=== PATIENT | female | born 1945 | race Caucasian/White ===

== ENCOUNTER → 2022-01-28 14:21 | Outpatient (BNVA) | payer MEDICARE, SELFPAY | PROVIDERS: Visit Provider Internal Medicine | DX: M47.26 Other spondylosis with radiculopathy, lumbar region (principal); M17.11 Unilateral primary osteoarthritis, right knee | CPT/HCPCS: 99202 ==

== ENCOUNTER 2022-02-12 10:19 | Outpatient (REF) | payer MEDICARE, SELFPAY ==
--- NOTE | ~2022-02-12 | MR_ITS ---
EXAMINATION: MR LUMBAR SPINE WITHOUT CONTRAST CLINICAL INFORMATION: Radiculopathy. Patient reports back pain radiating to bilateral legs x3 months. COMPARISON: None TECHNIQUE: MRI of the lumbar spine was obtained using routine sequences without contrast. FINDINGS: VERTEBRAL BODIES AND PARASPINAL STRUCTURES: Minimal Grade 1 anterolisthesis of L4 on L5. The vertebral body alignment is otherwise anatomic on the sagittal plane. No vertebral body compression. No acute fractures seen. There is multilevel degenerative disc disease, with associated Modic endplate changes. This includes rpej-dz-hdzdrftd degenerative disc disease at L2-L3, L3-L4, L4-L5. Multilevel disc desiccation. T2 bright foci in the left renal pelvis, probable parapelvic cysts. No suspicious finding seen in the visualized retroperitoneal structures. Paraspinal musculature is within normal limits. CONUS MEDULLARIS AND CAUDA EQUINA: Normal, terminating at the level of L1. SPINAL LEVELS: T10-T11: Mild disc degeneration. No significant disc bulge. T11-T12: Minimal degenerative disc disease. No significant disc bulge. T12-L1: Right paracentral disc protrusion with impression on the ventral thecal sac. No central canal stenosis. No foramen stenosis. L1-L2: Mild degenerative disc disease. Broad-based posterior disc bulge. No central canal stenosis. Mild narrowing of the inferior bilateral neural foramen. L2-L3: Xwsp-jt-unhvzrnz disc degeneration. Broad-based posterior disc bulge, with a left paracentral and foraminal disc protrusion. This abuts the traversing left L3 nerve. Mild bilateral neural foramen narrowing. No central canal stenosis. L3-L4: Txgi-ze-mqmdkpjg disc degeneration. Moderate broad-based disc protrusion. Probable central annular fissure. Mild ligamentum flavum hypertrophy. Mild facet arthropathy. Aaug-lb-uhdqeyny central canal narrowing. Mild right and bexv-jg-ajqyebzt left neural foramen narrowing. L4-L5: Yfog-aa-fkohmcsm disc degeneration. Mild anterolisthesis of L4, with unroofing of the disc/broad-based disc bulge. Nzvlianv-mc-kfyits bilateral facet arthropathy. Ligamentum flavum hypertrophy. No significant central canal stenosis. Mild right foramen, and szbx-ld-cmjmcwae left neural foramen narrowing. L5-S1: Mild broad-based posterior disc bulge. Severe bilateral facet arthropathy. No central canal stenosis. No significant neural foramen stenosis. MR/MR lumbar spine wo con IMPRESSION: At L3-L4, moderate broad-based disc protrusion. Probable central annular fissure. Hdnn-zv-byifdhqm central canal narrowing. Mild right hip and dzsp-un-ywsxpvbj left neural foramen narrowing. Multilevel spondyloarthropathy of the lumbosacral spine with varying degrees of foraminal stenosis, as detailed above by level.
== END 2022-02-12 10:20 | disposition home or self-care (01) ==
LOC: HO.MRI 10:19
PROVIDERS: Visit Provider Internal Medicine
DX: M54.16 Radiculopathy, lumbar region (principal); M47.816 Spondylosis without myelopathy or radiculopathy, lumbar region
CPT/HCPCS: 72148

== ENCOUNTER 2022-03-13 07:21 | Outpatient (REF) | payer MEDICARE, SELFPAY | END 2022-03-13 07:22 | disposition home or self-care (01) | LOC: HO.RADIR 07:21 | PROVIDERS: Visit Provider Internal Medicine | DX: M17.11 Unilateral primary osteoarthritis, right knee (principal) | CPT/HCPCS: 64447 ==

== ENCOUNTER → 2022-03-15 10:29 | Outpatient (BNVA) | payer MEDICARE, SELFPAY | PROVIDERS: Visit Provider Internal Medicine | DX: M54.16 Radiculopathy, lumbar region (principal) | CPT/HCPCS: Q3014 ==

== ENCOUNTER 2022-03-20 14:41 | Outpatient (REF) | payer MEDICARE, SELFPAY ==
--- NOTE | ~2022-03-20 | US_ITS ---
EXAMINATION: US KNEE, RIGHT CLINICAL INFORMATION: Osteoarthritis. COMPARISON: None. TECHNIQUE: Targeted ultrasound evaluation of the right knee. FINDINGS: There are 2 right popliteal fossa complex fluid collections present with 1 communicating with the right knee joint: One measures 4.2 x 1.2 x 3.0 cm in size and the other measures 4.4 x 1.4 x 4.7 cm in size. US/US extremity nonvascular IMPRESSION: Right popliteal fossa cysts.
== END 2022-03-20 14:42 | disposition home or self-care (01) ==
LOC: HO.US 14:41
PROVIDERS: Visit Provider Nurse Practitioner Family
DX: M17.11 Unilateral primary osteoarthritis, right knee (principal)
CPT/HCPCS: 76882

== ENCOUNTER 2022-04-03 06:37 | Outpatient (REF) | payer MEDICARE, SELFPAY ==
--- NOTE | ~2022-04-03 | FL_ITS ---
EXAMINATION: XR FLUOROSCOPY WITH IMAGES CLINICAL INFORMATION: M54.16 - Radiculopathy, lumbar region COMPARISON: MR lumbar spine 02/12/2022 TECHNIQUE: Fluoroscopy performed by Dr. aJvy Ambriz. Fluoroscopy time: 0.4 minutes. Cumulative Dose: 11.4 mGy. DAP: 0.932 Gy-cm2. Images: 4. FINDINGS: There is a spinal needle at the interlaminar lumbosacral junction. Epidural contrast is demonstrated. No visible vascular communication. There are degenerative disc changes again noted L4-L5. FL/FL guidance in treatment room IMPRESSION: Fluoroscopy for pain management procedure.
== END 2022-04-03 06:38 | disposition home or self-care (01) ==
LOC: HO.RADIR 06:37
PROVIDERS: Visit Provider Internal Medicine
DX: M54.16 Radiculopathy, lumbar region (principal)
CPT/HCPCS: 62323; J1040; J2795

== ENCOUNTER 2022-05-01 09:22 | Day surgery (SDC) | payer MEDICARE, SELFPAY ==
[2022-05-01 08:21] VITALS: BMI 31.5
[2022-05-01 09:31] VITALS: BP 159/77; PULSE 98; RESP 20; TEMP 36.4; O2SAT 97
[2022-05-01 11:46] VITALS: BP 151/85; PULSE 95; RESP 20; TEMP 36.7; O2SAT 99
--- NOTE | 2022-05-07 15:41 | MHC.SHP ---
Pre-Procedural Eval Section A Date of Service: 05/07/22 The patient is an INPATIENT: No Changes since office visit: Yes Patient answered all questions The History & Physical has been completed within 30 days and I have reviewed it.: No Section B Chief Complaint: osteoarthritis, chronic knee pain Relevant Family History (Specify if Yes): No Relevant Social History: None Present Medications: see Short Stay Collaborative assessment Medical History: No relevant PMH History of Previous Operations: No relevant previous surgery Allergies: Allergies Allergy/AdvReac Type Severity Reaction Status Date / Time No Known Allergies Allergy Verified 04/03/22 13:40 Review of Systems Sugical H&P ROS: Negative: Constitution, Cardiovascular and Respiratory Exam Surgical H&P Exam: Normal: HEENT, Normal: Heart and Normal: Lungs Plan Diagnosis/Plan: Unchanged I have reviewed the history and physical and performed a pertinent physical examination on my patient. No changes have occurred unless specified.
--- NOTE | 2022-05-07 15:42 | P.BOP_ITS ---
Brief Operative Note Date of Service: 05/01/22 Pre-op diagnosis: Right knee osteoarthritis, chronic right knee pain Post-op diagnosis: same Procedure: Temporary right saphenous nerve stimulator placement Implants: Sprint temporary PNS system Surgeon: Javy Ambriz MD Anesthesia: local Was an Director Of Anesthesia Services used for this Procedure?: No Estimated blood loss (mL): 2 Pathology: none sent Condition: stable Disposition: same day
--- NOTE | 2022-05-07 15:43 | P.OP_ITS ---
Operative Note Operative Note Date of Service: 05/01/22 Narrative: Peripheral Nerve Stimulation Temporary Lead Placement, Ultrasound-Guided, Saphenous Nerve, Right ? After the risks, benefits and alternatives were discussed with the patient and informed consentwas obtained, patient was placed in the supine position and padded to foster comfort. Appropriate skin and bony landmarks were identified, and pertinent vascular structures were located. The skin overlying the needle entry site was prepped and draped in sterile fashion. Ultrasound was used to identify the femoral artery, the femoral vein and the saphenous nerve. After identifying and marking the intended target along the course of the saphenous nerve, the skin around the planned entry point and the subcutaneous tissues were injected with local anesthetic. An introducer needle and stimulating probe were assembled, inserted and advanced along the intended course of the saphenous; nerve, taking care to maintain the proper depth of insertion as the introducer was advanced under ultrasound guidance. The introducer needle was delivered to a location in proximity to the nerve taking care not to puncture the femoral artery or the vein. Multiple stimulation parameters were used to deliver stimulation to the saphenous nerve in concert with stimulating at multiple positions around the nerve. Nerve target acquisition was confirmed noting generation of sensory and mild motor effects (paresthesia, muscle tension, etc) in the medial knee, leg and ankle; corresponding to the distribution of the saphenous nerve. Various electrical parameter combinations were tested, and the lead location was adjusted (physic ally relocated under ultrasound guidance) until the patient indicated medial knee paresthesia and tension overlapping the distribution of the patient?s typical region of pain. The stimulating probe was removed from the introducer and a percutaneous lead was guided through the needle and delivered to a location in similar proximity to the nerve. Final location was verified with electrical stimulation and documented. The introducer needle was removed, and the exposed end of the percutaneous lead was attached to an external stimulator unit. Various electrical parameter combinations were again tested until the patient indicated paresthesia and muscle tension overlapping the distribution of the patient?s typical region of pain. After confirming that lead impedance was in the normal range, the external unit was detached, the needle was removed, and the lead was anchored at the skin. The lead was threaded into the connector block and electrical continuity and desired patient response was confirmed. The connector block was attached to the external stimulator unit. The site was covered with a sterile occlusive dressing. A final ultrasound image was taken to document final placement. The patient was observed for stability of vital signs and comfort.
== END 2022-05-01 12:25 | disposition home or self-care (01) ==
PROVIDERS: PCP Internal Medicine; Visit Provider Internal Medicine
PROC: (CPT 64555; principal; 2022-05-01 10:20)
DX: M17.11 Unilateral primary osteoarthritis, right knee (principal); G89.29 Other chronic pain; M25.561 Pain in right knee; M54.50 Low back pain, unspecified; M81.0 Age-related osteoporosis without current pathological fracture; I10 Essential (primary) hypertension; J45.909 Unspecified asthma, uncomplicated; F43.0 Acute stress reaction; Z79.899 Other long term (current) drug therapy
CPT/HCPCS: 64555; C1778

== ENCOUNTER → 2022-05-10 09:33 | Outpatient (BNVA) | payer MEDICARE, SELFPAY | PROVIDERS: PCP Internal Medicine; Visit Provider Internal Medicine | DX: M17.11 Unilateral primary osteoarthritis, right knee (principal); M25.561 Pain in right knee | CPT/HCPCS: 99212 ==

== ENCOUNTER → 2022-06-28 08:05 | Outpatient (BNVA) | payer MEDICARE, SELFPAY | PROVIDERS: PCP Internal Medicine; Visit Provider Internal Medicine | DX: M25.561 Pain in right knee (principal); M54.16 Radiculopathy, lumbar region | CPT/HCPCS: 99212 ==

== ENCOUNTER 2023-11-26 08:05 | Outpatient (REF) | payer MEDICARE, SELFPAY ==
--- NOTE | ~2023-11-26 | XR_ITS ---
EXAMINATION: XR KNEE AP STANDING CLINICAL INFORMATION: Unilateral primary osteoarthritis, right knee COMPARISON: None available. TECHNIQUE: AP bilateral standing view of the knees was obtained. FINDINGS: No fracture. Alignment is anatomic. There is mild narrowing of the medial and lateral joint compartments of both knees. Small marginal osteophytes are seen along the lateral joint compartment of the right knee. There is mild subchondral sclerosis within the articular surface of the medial femoral condyle of the right knee. No abnormal soft tissue calcification. XR/XR knee standing BI IMPRESSION: 1. Mild bilateral osteoarthritis. 2. Mild subchondral sclerosis within the medial joint compartment of the right knee.
== END 2023-11-26 08:06 | disposition home or self-care (01) ==
LOC: HO.XRAY 08:05
PROVIDERS: PCP Internal Medicine; Visit Provider Internal Medicine
DX: M17.11 Unilateral primary osteoarthritis, right knee (principal)
CPT/HCPCS: 73565; 99212

== ENCOUNTER 2023-11-26 08:05 | Outpatient (AMB) | payer MEDICARE, SELFPAY ==
--- NOTE | 2023-11-26 08:08 | A.OFFVIS_ITS ---
Vital Signs 11/26/23 08:09 Height 5 ft 4 in Weight 174 lb 4 oz BMI 29.9 BP 190/78 H Blood Pressure Location Lt brachial Position Sitting Respiration 16 Pulse 82 Pulse Source Pulse Oximeter Pulse Oximetry (%) 97 Oxygen Delivery Method Room Air Intake Visit Reasons: back/legs pain Allergies No Known Allergies Allergy (Verified 06/28/22 08:20) HPI HPI back/legs pain: Details: 77-year-old female who presents today for evaluation of back/leg pain She reports having pain, tightness, and discomfort in her back and legs. She had about 10 months of relief from the nerve stimulation procedure. Her pain has now returned and she feels this pain is similar to the kind of back pain she had in the past. Pain originates in the back and radiates down her right leg. Past Procedures: 05/01/22: Sprint PNS Trial ? excellent relief for 8-10 months. 04/03/22: Right Parasagittal Interlaminar L5-S1 NYASIA ? 80% relief. 03/13/22: Right Diagnostic Saphenous NB ? 90% relief for one day. [facility] Medical History (Updated 06/28/22 @ 09:16 by Javy mAbriz MD) Tick bite Situational stress Polyarthritis Palpitations Osteoporosis Obesity Low back pain Knee pain Hypothyroidism Hypertensive disorder Hypercholesterolemia Healthcare maintenance Diastolic dysfunction GERD (gastroesophageal reflux disease) Full thickness rotator cuff tear Dyspnea Cervical spondylosis Asthma Anxiety Actinic keratosis Abdominal pain Social History Patient Tobacco Use Status: Never used Tobacco Review of Systems Const All systems reviewed & are unremarkable except as noted in HPI and below Physical Exam Vital Signs: Last Vital Signs Pulse 82 11/26/23 08:09 Resp 16 11/26/23 08:09 BP 190/78 H 11/26/23 08:09 Pulse Ox 97 11/26/23 08:09 Oxygen Delivery Method Room Air 11/26/23 08:09 BMI result Body Mass Index 29.9 General: Appears afebrile. Alert and oriented. Mood and affect appropriate. Follows and participates in conversation appropriately. Respiratory effort is unlabored. Able to transition from sit to stand unassisted. Results Reviewed Results Reviewed: 04/03/22: XR FLUOROSCOPY WITH IMAGES FINDINGS: There is a spinal needle at the interlaminar lumbosacral junction. Epidural contrast is demonstrated. No visible vascular communication. There are degenerative disc changes again noted L4-L5. IMPRESSION: Fluoroscopy for pain management procedure. 02/20/22: US KNEE, RIGHT FINDINGS: There are 2 right popliteal fossa complex fluid collections present with 1 communicating with the right knee joint: One measures 4.2 x 1.2 x 3.0 cm in size and the other measures 4.4 x 1.4 x 4.7 cm in size. IMPRESSION: Right popliteal fossa cysts. 02/12/22: MR LUMBAR SPINE WITHOUT CONTRAST FINDINGS: VERTEBRAL BODIES AND PARASPINAL STRUCTURES: Minimal Grade 1 anterolisthesis of L4 on L5. The vertebral body alignment is otherwise anatomic on the sagittal plane. No vertebral body compression. No acute fractures seen. There is multilevel degenerative disc disease, with associated Modic endplate changes. This includes butc-jv-jlalgoat degenerative disc disease at L2-L3, L3-L4, L4-L5. Multilevel disc desiccation. T2 bright foci in the left renal pelvis, probable parapelvic cysts. No suspicious finding seen in the visualized retroperitoneal structures. Paraspinal musculature is within normal limits. CONUS MEDULLARIS AND CAUDA EQUINA: Normal, terminating at the level of L1. SPINAL LEVELS: T10-T11: Mild disc degeneration. No significant disc bulge. T11-T12: Minimal degenerative disc disease. No significant disc bulge. T12-L1: Right paracentral disc protrusion with impression on the ventral thecal sac. No central canal stenosis. No foramen stenosis. L1-L2: Mild degenerative disc disease. Broad-based posterior disc bulge. No central canal stenosis. Mild narrowing of the inferior bilateral neural foramen. L2-L3: Glet-gc-ycnnjynb disc degeneration. Broad-based posterior disc bulge, with a left paracentral and foraminal disc protrusion. This abuts the traversing left L3 nerve. Mild bilateral neural foramen narrowing. No central canal stenosis. L3-L4: Deid-zi-jdlkrgrx disc degeneration. Moderate broad-based disc protrusion. Probable central annular fissure. Mild ligamentum flavum hypertrophy. Mild facet arthropathy. Xpaa-du-vbnrojso central canal narrowing. Mild right and lgmu-mu-rtjdiasq left neural foramen narrowing. L4-L5: Yipi-mg-berjhvhc disc degeneration. Mild anterolisthesis of L4, with unroofing of the disc/broad-based disc bulge. Njggytng-hn-sioguv bilateral facet arthropathy. Ligamentum flavum hypertrophy. No significant central canal stenosis. Mild right foramen, and ebir-uq-tlbjppkd left neural foramen narrowing. L5-S1: Mild broad-based posterior disc bulge. Severe bilateral facet arthropathy. No central canal stenosis. No significant neural foramen stenosis. IMPRESSION: At L3-L4, moderate broad-based disc protrusion. Probable central annular fissure. Sosh-do-rbtpkcyb central canal narrowing. Mild right hip and fysd-hd-svwniqsi left neural foramen narrowing. Multilevel spondyloarthropathy of the lumbosacral spine with varying degrees of foraminal stenosis, as detailed above by level. Assessment & Plan Assessment & Plan (1) Right knee pain: Comment: Status post peripheral nerve stimulation with 80% relief Code(s): M25.561 - Pain in right knee Category: Medical (2) Osteoarthritis of right knee: Code(s): M17.11 - Unilateral primary osteoarthritis, right knee Category: Medical Plan Repeat right parasagittal interlaminar NYASIA at L4-5 for lumbar radicular symptoms going down her leg. X-rays of bilateral standing knees to assess osteoarthritis. Will consider hyaluronic acid injection after reviewing the X-ray. Scribed for Dr. Ambriz by Terence Villagran, medical lead, on 11/26/2023. I, Dr. Ambriz, have personally reviewed and agree with the information entered by the scribe. Orders: Orders XR hips DEB min 3V 11/26/23 M17.11 - Unilateral primary osteoarthritis, right knee, M25.561 - Pain in right knee XR knee standing BI 11/26/23 M17.11 - Unilateral primary osteoarthritis, right knee, M25.561 - Pain in right knee Coding Level of Care Code Est Pt Level 4 (52135) Diagnoses Right knee pain M25.561 Osteoarthritis of right knee M17.11
[2023-11-26 08:09] VITALS: BP 190/78; PULSE 82; RESP 16; O2SAT 97; BMI 29.9
== END 2023-11-26 08:42 | disposition home or self-care (01) ==
PROVIDERS: PCP Internal Medicine; Visit Provider Internal Medicine
DX: M25.561 Pain in right knee (principal); M17.11 Unilateral primary osteoarthritis, right knee
CPT/HCPCS: 99214

== ENCOUNTER 2023-12-18 06:05 | Outpatient (REF) | payer MEDICARE, SELFPAY ==
--- NOTE | ~2023-12-18 | FL_ITS ---
EXAMINATION: XR FLUOROSCOPY WITH IMAGES CLINICAL INFORMATION: Lumbar radiculopathy. COMPARISON: None available. TECHNIQUE: Fluoroscopy Supervised By: Dr. Ambriz. Fluoroscopy Time: 0.0. Cumulative Dose: 1.992 mGy. DAP: 0.55593 Gycm2. Images: 3. FINDINGS: Intraoperative fluoroscopy and spot films were performed during a procedure in the OR. A spinal needle is present in the epidural space on the right at what is likely L5-S1 although exact level difficult to ascertain because of the coning of the radiographs. Contrast is seen in the epidural space Please see Dr. Ambriz' report for complete details. FL/FL guidance in treatment room IMPRESSION: Intraoperative fluoroscopy and spot films were obtained. Please see Dr. Ambriz' report for complete details.
== END 2023-12-18 06:06 | disposition home or self-care (01) ==
LOC: CF 06:05
PROVIDERS: Visit Provider Internal Medicine
DX: M54.16 Radiculopathy, lumbar region (principal)
CPT/HCPCS: 62323; J2795; J3301; Q9967

== ENCOUNTER 2023-12-18 07:43 | Outpatient (AMB) | payer MEDICARE, SELFPAY ==
--- NOTE | 2023-12-18 07:46 | A.OFFVIS_ITS ---
Vital Signs 12/18/23 07:56 12/18/23 08:44 Height 54 ft Weight 174 lb BMI 0.3 BP 122/80 126/80 Blood Pressure Location Lt brachial Lt brachial Position Sitting Sitting Respiration 16 18 Pulse 81 88 Pulse Source Pulse Oximeter Pulse Oximeter Pulse Oximetry (%) 100 99 Oxygen Delivery Method Room Air Room Air Comment Pre-Op Post-Op Intake Visit Reasons: Right L5-S1 parasagittal interlaminar NYASIA Allergies No Known Allergies Allergy (Verified 06/28/22 08:20) HPI HPI Right L5-S1 parasagittal interlaminar NYASIA: Details: Patient presents for scheduled procedure. Denies any recent cough, cold, infection, fever or other significant changes in medical history since last office visit. [facility] Medical History (Updated 12/18/23 @ 08:19 by Javy Ambriz MD) Tick bite Situational stress Polyarthritis Palpitations Osteoporosis Obesity Low back pain Knee pain Hypothyroidism Hypertensive disorder Hypercholesterolemia Healthcare maintenance Diastolic dysfunction GERD (gastroesophageal reflux disease) Full thickness rotator cuff tear Dyspnea Cervical spondylosis Asthma Anxiety Actinic keratosis Abdominal pain Social History Patient Tobacco Use Status: Never used Tobacco Physical Exam Vital Signs: Last Vital Signs Pulse 81 12/18/23 07:56 Resp 16 12/18/23 07:56 BP 122/80 12/18/23 07:56 Pulse Ox 100 12/18/23 07:56 Oxygen Delivery Method Room Air 12/18/23 07:56 BMI result Body Mass Index 0.3 Office Procedures Joint Injection/Drain Joint Injection/Drain Details: Interlaminar epidural steroid injection, L5/S1, Right parasaggital After obtaining written consent, pre-procedure blood pressure and heart rate were stable and recorded in the nursing record. The patient was placed in the prone position. The lumbar area was widely prepped with chloraprep and draped in sterile fashion. Fluoroscopic guidance was used to identify the desired interlaminar space and for needle placement. Subcutaneous 0.5% lidocaine was used to anesthetize the skin overlying the target. A 20-gauge Goddard needle was advanced to the epidural space using loss of resistance to contrast technique under fluoroscopic AP and contralateral oblique views. There was no evidence of heme or CSF and no paresthesias were elicited with needle placement. Confirmation of epidural needle placement was performed with 1cc of omnipaque 180. Next 3 ml 0.5% lidocaine mixed with 40 mg triamcinolone was administered epidurally with no pain elicited on injection. The needle tract tubing was then cleared with 1 ml of 0.5% lidocaine. The needle was removed, skin cleansed and a sterile bandage was applied. The patient tolerated the procedure well and no complications were encountered. Following the procedure the patient's vital signs were stable. The patient was discharged home in good condition with post-procedural instructions. Time Out: Immediately prior to the procedure, the following was verbally confirmed that there is a signed consent form and that the correct patient, planned procedure, site and side are consistent with documentation and that necessary equipment and/or blood products are available prior to the start of the case. Complications: none EBL: <5 cc Coding 93775 - Caudal/Lumbar Epidural/Interlaminar with fluoroscopy Procedure code (CPT) selection complete Assessment & Plan Assessment & Plan (1) Lumbar radiculopathy: Code(s): M54.16 - Radiculopathy, lumbar region Category: Medical Plan Patient is status post right parasagittal L5-S1 NYASIA. Patient tolerated procedure well and was discharged home in stable condition with discharge instructions. All questions were answered. We will follow-up via telephone or in clinic to assess response to therapy. A follow-up appointment was made during today's visit. Orders: Orders FL guidance in treatment room Today M54.16 - Radiculopathy, lumbar region Coding Level of Care Code Procedure Only Diagnoses Lumbar radiculopathy M54.16 CPT Codes Coding - Joint 11: 06133 - Caudal/Lumbar Epidural/Interlaminar with fluoroscopy ([id number])
[2023-12-18 07:56] VITALS: BP 122/80; PULSE 81; RESP 16; O2SAT 100
[2023-12-18 08:44] VITALS: BP 126/80; PULSE 88; RESP 18; O2SAT 99
== END 2023-12-18 08:32 | disposition home or self-care (01) ==
LOC: HO.PMCPRC 07:43
PROVIDERS: PCP Internal Medicine; Visit Provider Internal Medicine
DX: M54.16 Radiculopathy, lumbar region (principal)
CPT/HCPCS: 62323

== ENCOUNTER 2024-01-16 07:50 | Outpatient (AMB) | payer MEDICARE, SELFPAY ==
--- NOTE | 2024-01-16 07:53 | MHC.OFFVIS ---
Vital Signs 01/16/24 07:55 Height 5 ft 4 in Weight 174 lb BMI 29.9 BP 182/81 H Blood Pressure Location Lt brachial Position Sitting Respiration 14 Pulse 83 Pulse Source Pulse Oximeter Pulse Oximetry (%) 100 Oxygen Delivery Method Room Air Intake Visit Reasons: s/p right L5-S1 interlaminar NYASIA Allergies No Known Allergies Allergy (Verified 01/16/24 07:56) Medication List - Last Reconciled 01/16/24 by Kristie Marvin LPN atorvastatin 5 mg PO BEDTIME denosumab (Prolia) 60 mg subcut [id number] levothyroxine 50 mcg PO DAILY lisinopril 10 mg PO BEDTIME multivitamin 1 tab PO DAILY omeprazole 20 mg PO DAILY HPI HPI s/p right L5-S1 interlaminar NYASIA: Details: 78-year-old female who presents today to the office for a status post right L5-S1 interlaminar NYASIA. The patient reports 30% relief following the procedure. She reports having pain in the right leg, back side of the leg, lower back, and feeling sciatic pain sensations. She also reports knee pain (R>L) and had an x-ray of the knee on her last visit. She reoprts mild swelling around the knees. She is able to move around more in the house without pain after the injection. She states that climbing stairs is worse. She is thinking about knee replacement surgery. She had a cortisone injection in the past with moderate relief. Past procedures 12/18/23: Interlaminar epidural steroid injection, L5/S1, Right parasaggital: 30% relief. 05/01/22: Sprint saphenous PNS Trial ? excellent relief for 8-10 months. 04/03/22: Right Parasagittal Interlaminar L5-S1 NYASIA ? 80% relief. 03/13/22: Right Diagnostic Saphenous NB ? 90% relief for one day. [facility] Medical History (Updated 01/16/24 @ 09:03 by Javy Ambriz MD) Tick bite Situational stress Polyarthritis Palpitations Osteoporosis Obesity Low back pain Knee pain Hypothyroidism Hypertensive disorder Hypercholesterolemia Healthcare maintenance Diastolic dysfunction GERD (gastroesophageal reflux disease) Full thickness rotator cuff tear Dyspnea Cervical spondylosis Asthma Anxiety Actinic keratosis Abdominal pain Social History Patient Tobacco Use Status: Never used Tobacco Review of Systems Const All systems reviewed & are unremarkable except as noted in HPI and below Physical Exam Vital Signs: Last Vital Signs Pulse 83 01/16/24 07:55 Resp 14 01/16/24 07:55 BP 182/81 H 01/16/24 07:55 Pulse Ox 100 01/16/24 07:55 Oxygen Delivery Method Room Air 01/16/24 07:55 BMI result Body Mass Index 29.9 General: Appears afebrile. Alert and oriented. Mood and affect appropriate. Follows and participates in conversation appropriately. Respiratory effort is unlabored. Able to transition from sit to stand unassisted. Ambulates with bilaterally normal heel strike and toe off. Results Reviewed Results Reviewed: No imaging is available for review. Assessment & Plan Assessment & Plan (1) Osteoarthritis of knees, bilateral: Code(s): M17.0 - Bilateral primary osteoarthritis of knee Category: Medical (2) Lumbar radiculopathy: Code(s): M54.16 - Radiculopathy, lumbar region Category: Medical Plan Discussed nerve root block for back pain and temporary stimulator vs. gel injections vs. cortisone injection vs. PRP injections for knee pain as possible treatment options. Will schedule her for a right L5 TFESI for her right leg radicular pain. Will also schedule her for a bilateral euflexxa knee injection x 3 for knee osteoarthritis. Discussed the risks and benefits of the procedure with the patient in detail. All questions were answered. The patient is on board with the plan. Justification for interventional therapy: ? Patient with average pain > 6/10 ? Patient has exhausted conservative therapy ? Patient unable to tolerate physical therapy due to pain. . Patient has a good understanding of their pain condition and has appropriate mental and social support Scribed for Dr. Ambriz by Leo Robles, hospital medical assistant, on 01/16/2024. I, Dr. Ambriz, have personally reviewed and agree with the information entered by the scribe. Coding Level of Care Code Est Pt Level 4 (90709) Diagnoses Osteoarthritis of knees, bilateral M17.0 Lumbar radiculopathy M54.16
[2024-01-16 07:55] VITALS: BP 182/81; PULSE 83; RESP 14; O2SAT 100; BMI 29.9
== END 2024-01-16 08:27 | disposition home or self-care (01) ==
PROVIDERS: PCP Internal Medicine; Visit Provider Internal Medicine
DX: M17.0 Bilateral primary osteoarthritis of knee (principal); M54.16 Radiculopathy, lumbar region
CPT/HCPCS: 99214

== ENCOUNTER → 2024-01-16 07:50 | Outpatient (BNVA) | payer MEDICARE, SELFPAY | PROVIDERS: PCP Internal Medicine; Visit Provider Internal Medicine | DX: M17.0 Bilateral primary osteoarthritis of knee (principal); M54.16 Radiculopathy, lumbar region | CPT/HCPCS: 99212 ==

== ENCOUNTER 2024-02-12 08:43 | Outpatient (AMB) | payer MEDICARE, SELFPAY ==
--- NOTE | 2024-02-12 08:49 | A.OFFVIS_ITS ---
Vital Signs 02/12/24 08:50 Height 5 ft 4 in Weight 179 lb BMI 30.7 BP 177/79 H Blood Pressure Location Rt brachial Position Sitting Respiration 19 Pulse 90 Pulse Source Pulse Oximeter Pulse Oximetry (%) 99 Oxygen Delivery Method Room Air Intake Visit Reasons: Sherwin Euflexxa injections Allergies No Known Allergies Allergy (Verified 02/12/24 08:52) Medication List - Last Reconciled 02/12/24 by Kori Corrigan atorvastatin 5 mg PO BEDTIME denosumab (Prolia) 60 mg subcut [id number] levothyroxine 50 mcg PO DAILY lisinopril 10 mg PO BEDTIME multivitamin 1 tab PO DAILY omeprazole 20 mg PO DAILY HPI HPI Sherwin Euflexxa injections: Details: Patient presents for scheduled procedure. Denies any recent cough, cold, infection, fever or other significant changes in medical history since last office visit. [facility] Medical History (Updated 01/16/24 @ 09:03 by Javy Ambriz MD) Tick bite Situational stress Polyarthritis Palpitations Osteoporosis Obesity Low back pain Knee pain Hypothyroidism Hypertensive disorder Hypercholesterolemia Healthcare maintenance Diastolic dysfunction GERD (gastroesophageal reflux disease) Full thickness rotator cuff tear Dyspnea Cervical spondylosis Asthma Anxiety Actinic keratosis Abdominal pain Social History Patient Tobacco Use Status: Never used Tobacco Physical Exam Vital Signs: Last Vital Signs Pulse 90 02/12/24 08:50 Resp 19 02/12/24 08:50 BP 177/79 H 02/12/24 08:50 Pulse Ox 99 02/12/24 08:50 Oxygen Delivery Method Room Air 02/12/24 08:50 BMI result Body Mass Index 30.7 Office Procedures Joint Injection/Drain Joint Injection/Drain Details: The knee joint was visualized using ultrasound. A 25 gauge needle was advanced intra-articularly under ultrasound and placement was confirmed with intra- articular visualization of the needle tip. The prepackaged Euflexxa syringe containing 2 mL sodium hyaluronate was retrieved and administered to the joint. The same process was repeated on the other side. The patient tolerated the procedures well. Euflexxa Lot # [id number] Exp Date 12/14/2024 Coding Additional procedure code (CPT) needed Assessment & Plan Assessment & Plan (1) Osteoarthritis of knees, bilateral: Code(s): M17.0 - Bilateral primary osteoarthritis of knee Category: Medical Plan Patient is status post bilateral intra-articular Euflexxa (1% sodium hyaluronate) injections. Patient tolerated procedure well and was discharged home in stable condition with discharge instructions. All questions were answered. We will follow-up via telephone or in clinic to assess response to therapy. A follow-up appointment was made during today's visit. Coding Level of Care Code Procedure Only Diagnoses Osteoarthritis of knees, bilateral M17.0
[2024-02-12 08:50] VITALS: BP 177/79; PULSE 90; RESP 19; O2SAT 99; BMI 30.7
== END 2024-02-12 09:27 | disposition home or self-care (01) ==
PROVIDERS: PCP Internal Medicine; Visit Provider Internal Medicine
DX: M17.0 Bilateral primary osteoarthritis of knee (principal)
CPT/HCPCS: 20611

== ENCOUNTER → 2024-02-12 08:43 | Outpatient (BNVA) | payer MEDICARE, SELFPAY | PROVIDERS: PCP Internal Medicine; Visit Provider Internal Medicine | DX: M17.0 Bilateral primary osteoarthritis of knee (principal) | CPT/HCPCS: 20611 ==

== ENCOUNTER 2024-02-20 07:50 | Outpatient (AMB) | payer MEDICARE, SELFPAY ==
--- NOTE | 2024-02-20 07:55 | MHC.OFFVIS ---
Vital Signs 02/20/24 07:57 Height 5 ft 4 in Weight 176 lb BMI 30.2 BP 186/86 H Blood Pressure Location Lt brachial Position Sitting Respiration 14 Pulse 88 Pulse Source Pulse Oximeter Pulse Oximetry (%) 98 Oxygen Delivery Method Room Air Intake Visit Reasons: Sherwin Euflexxa inj Allergies No Known Allergies Allergy (Verified 02/20/24 07:58) Medication List - Last Reconciled 02/20/24 by Kristie Marvin LPN atorvastatin 5 mg PO BEDTIME denosumab (Prolia) 60 mg subcut [id number] levothyroxine 50 mcg PO DAILY lisinopril 10 mg PO BEDTIME multivitamin 1 tab PO DAILY omeprazole 20 mg PO DAILY HPI HPI Sherwin Euflexxa inj: Details: 78-year-old female who presents today to the office for a bilateral Euflexxa injections. Denies any recent cough, cold, infection, fever or other significant changes in medical history since last office visit.? Past procedures 02/12/2024: bilateral intra-articular Euflexxa (1% sodium hyaluronate) injections: % relief. 12/18/23: Interlaminar epidural steroid injection, L5/S1, Right parasaggital: 30% relief. 05/01/22: Sprint saphenous PNS Trial ? excellent relief for 8-10 months. 04/03/22: Right Parasagittal Interlaminar L5-S1 NYASIA ? 80% relief. 03/13/22: Right Diagnostic Saphenous NB ? 90% relief for one day. [facility] Medical History (Updated 01/16/24 @ 09:03 by Javy Ambriz MD) Tick bite Situational stress Polyarthritis Palpitations Osteoporosis Obesity Low back pain Knee pain Hypothyroidism Hypertensive disorder Hypercholesterolemia Healthcare maintenance Diastolic dysfunction GERD (gastroesophageal reflux disease) Full thickness rotator cuff tear Dyspnea Cervical spondylosis Asthma Anxiety Actinic keratosis Abdominal pain Social History Patient Tobacco Use Status: Never used Tobacco Review of Systems Const All systems reviewed & are unremarkable except as noted in HPI and below Physical Exam Vital Signs: Last Vital Signs Pulse 88 02/20/24 07:57 Resp 14 02/20/24 07:57 BP 186/86 H 02/20/24 07:57 Pulse Ox 98 02/20/24 07:57 Oxygen Delivery Method Room Air 02/20/24 07:57 BMI result Body Mass Index 30.2 General: Appears afebrile. Alert and oriented. Mood and affect appropriate. Follows and participates in conversation appropriately. Respiratory effort is unlabored. Able to transition from sit to stand unassisted. Ambulates with bilaterally normal heel strike and toe off. Office Procedures Joint Injection/Aspiration Joint Injection/Aspiration Details: The knee was visualized using ultrasound. A 25 gauge needle was advanced in to the suprapatellar bursa under ultrasound.The prepackaged Euflexxa syringe containing 2 mL sodium hyluronate 1% was retrieved and administered to the joint. The same process was repeated on the other side. The patient tolerated the procedure well. Primary Site: right knee Secondary Site: left knee Prep: site was prepped using sterile technique Approach Used: other (suprapatellar US guided) Procedure: The patient tolerated the procedure well Coding - Large joint Additional procedure code (CPT) needed Office Meds Euflexxa 10 mg/mL (mw 2.4-3.6 million) intra-articular syringe Performing Provider: Javy Ambriz MD Performing Location: [facility] Administered by: Javy Ambriz MD on 02/20/24 08:33 Dose Route Admin Location Dispensed Lot Number Expiration Date [facility] [employer] 40 mg intra-articular 4 mL [id number] 12/14/24 Results Reviewed Results Reviewed: No imaging is available for review. Assessment & Plan Assessment & Plan (1) Osteoarthritis of knees, bilateral: Code(s): M17.0 - Bilateral primary osteoarthritis of knee Category: Medical Plan Patient is status post bilateral Euflexxa injections. Patient tolerated procedure well and was discharged home in stable condition with discharge instructions.? All questions were answered. Follow up in 1 week for third round. Scribed for Dr. Ambriz by Leo Robles certified medical assistant, on 02/20/2024. I, Dr. Ambriz, have personally reviewed and agree with the information entered by the scribe. Orders: Orders AMB Joint Injection/Aspiration Today M17.0 - Bilateral primary osteoarthritis of knee Medications: New Euflexxa (sodium hyaluronate (viscosup)) 40 mg (4 mL) intra-articular ONCE 4 mL 0RF NS M17.0 - Bilateral primary osteoarthritis of knee Coding Level of Care Code Procedure Only Diagnoses Osteoarthritis of knees, bilateral M17.0 CPT Codes Coding - Large joint: 09962 - Large joint ([id number])
[2024-02-20 07:57] VITALS: BP 186/86; PULSE 88; RESP 14; O2SAT 98; BMI 30.2
== END 2024-02-20 08:48 | disposition home or self-care (01) ==
PROVIDERS: PCP Internal Medicine; Visit Provider Internal Medicine
DX: M17.0 Bilateral primary osteoarthritis of knee (principal)
CPT/HCPCS: 20611

== ENCOUNTER → 2024-02-20 07:50 | Outpatient (BNVA) | payer MEDICARE, SELFPAY | PROVIDERS: PCP Internal Medicine; Visit Provider Internal Medicine | DX: M17.0 Bilateral primary osteoarthritis of knee (principal) | CPT/HCPCS: 20610; 20611; J7323 ==

== ENCOUNTER 2024-02-25 07:55 | Outpatient (AMB) | payer MEDICARE, SELFPAY ==
[2024-02-25 07:59] VITALS: BP 170/82; PULSE 78; RESP 14; O2SAT 98; BMI 30.4
--- NOTE | 2024-02-25 07:59 | MHC.OFFVIS ---
Vital Signs 02/25/24 07:59 Height 5 ft 4 in Weight 177 lb BMI 30.4 BP 170/82 H Blood Pressure Location Lt brachial Position Sitting Respiration 14 Pulse 78 Pulse Source Pulse Oximeter Pulse Oximetry (%) 98 Oxygen Delivery Method Room Air Intake Visit Reasons: Sherwin Euflexxa inj Allergies No Known Allergies Allergy (Verified 02/25/24 08:01) Medication List - Last Reconciled 02/25/24 by Kristie Marvin LPN atorvastatin 5 mg PO BEDTIME denosumab (Prolia) 60 mg subcut [id number] levothyroxine 50 mcg PO DAILY lisinopril 10 mg PO BEDTIME multivitamin 1 tab PO DAILY omeprazole 20 mg PO DAILY HPI HPI Sherwin Euflexxa inj: Details: 78-year-old female who presents today to the office for 3rd round of bilateral Euflexxa injections. She claims that she still has been experiencing mild pain in her right knee as her left knee has improved significantly. She has stiffness in the right knee. Denies any recent cough, cold, infection, fever or other significant changes in medical history since last office visit. Past procedures 02/20/24: Bilateral intra-articular Euflexxa injections: 50% relief. 02/11/34: Bilateral intra-articular Euflexxa injections: 50% relief. 12/18/23: Interlaminar epidural steroid injection, L5/S1, Right parasaggital: 30% relief. 05/01/22: Sprint saphenous PNS Trial ? excellent relief for 8-10 months. 04/03/22: Right Parasagittal Interlaminar L5-S1 NYASIA ? 80% relief. 03/13/22: Right Diagnostic Saphenous NB ? 90% relief for one day. [facility] Medical History (Updated 01/16/24 @ 09:03 by Javy Ambriz MD) Tick bite Situational stress Polyarthritis Palpitations Osteoporosis Obesity Low back pain Knee pain Hypothyroidism Hypertensive disorder Hypercholesterolemia Healthcare maintenance Diastolic dysfunction GERD (gastroesophageal reflux disease) Full thickness rotator cuff tear Dyspnea Cervical spondylosis Asthma Anxiety Actinic keratosis Abdominal pain Social History Patient Tobacco Use Status: Never used Tobacco Physical Exam Vital Signs: Last Vital Signs Pulse 78 02/25/24 07:59 Resp 14 02/25/24 07:59 BP 170/82 H 02/25/24 07:59 Pulse Ox 98 02/25/24 07:59 Oxygen Delivery Method Room Air 02/25/24 07:59 BMI result Body Mass Index 30.4 General: Appears afebrile. Alert and oriented. Mood and affect appropriate. Follows and participates in conversation appropriately. Respiratory effort is unlabored. Able to transition from sit to stand unassisted. Ambulates with bilaterally normal heel strike and toe off. Office Procedures Joint Injection/Aspiration Joint Injection/Aspiration Details: The knee was visualized using ultrasound. A 25 gauge needle was advanced in to the suprapatellar bursa under ultrasound.The prepackaged Euflexxa syringe containing 2 mL sodium hyluronate 1% was retrieved and administered to the joint. The same process was repeated on the other side. The patient tolerated the procedure well. Primary Site: right knee Secondary Site: left knee Prep: site was prepped using sterile technique Approach Used: other (suprapatellar US guided) Procedure: The patient tolerated the procedure well Coding 90411 - Large joint Additional procedure code (CPT) needed Office Meds Euflexxa 10 mg/mL (mw 2.4-3.6 million) intra-articular syringe Performing Provider: Javy Ambriz MD Performing Location: [facility] Administered by: Javy Ambriz MD on 02/25/24 09:32 Dose Route Admin Location Dispensed Lot Number Expiration Date [facility] [employer] 20 mg intra-articular 4 mL [id number] 12/14/24 Results Reviewed Results Reviewed: 11/26/23: XR KNEE AP STANDING FINDINGS: No fracture. Alignment is anatomic. There is mild narrowing of the medial and lateral joint compartments of both knees. Small marginal osteophytes are seen along the lateral joint compartment of the right knee. There is mild subchondral sclerosis within the articular surface of the medial femoral condyle of the right knee. No abnormal soft tissue calcification. IMPRESSION: 1. Mild bilateral osteoarthritis. 2. Mild subchondral sclerosis within the medial joint compartment of the right knee. 04/03/22: XR FLUOROSCOPY WITH IMAGES FINDINGS: There is a spinal needle at the interlaminar lumbosacral junction. Epidural contrast is demonstrated. No visible vascular communication. There are degenerative disc changes again noted L4-L5. IMPRESSION: Fluoroscopy for pain management procedure. 02/20/22: US KNEE, RIGHT FINDINGS: There are 2 right popliteal fossa complex fluid collections present with 1 communicating with the right knee joint: One measures 4.2 x 1.2 x 3.0 cm in size and the other measures 4.4 x 1.4 x 4.7 cm in size. IMPRESSION: Right popliteal fossa cysts. Assessment & Plan Assessment & Plan (1) Osteoarthritis of knees, bilateral: Code(s): M17.0 - Bilateral primary osteoarthritis of knee Category: Medical Plan Patient is status post bilateral Euflexxa injections. Patient tolerated procedure well and was discharged home in stable condition with discharge instructions. All questions were answered. Follow-up next week as scheduled for low back injection. Scribed for Dr. Ambriz by Jd certified court/medical interpreter, on 02/25/2024. I, Dr. Ambriz, have personally reviewed and agree with the information entered by the scribe.? Orders: Orders AMB Joint Injection/Aspiration Today M17.0 - Bilateral primary osteoarthritis of knee Medications: New Euflexxa (sodium hyaluronate (viscosup)) 20 mg (2 mL) intra-articular ONCE 4 mL 0RF NS M17.0 - Bilateral primary osteoarthritis of knee Coding Level of Care Code Procedure Only Diagnoses Osteoarthritis of knees, bilateral M17.0 CPT Codes Coding - 71315 Large joint: 89889 - Large joint ([id number])
== END 2024-02-25 08:35 | disposition home or self-care (01) ==
PROVIDERS: PCP Internal Medicine; Visit Provider Internal Medicine
DX: M17.0 Bilateral primary osteoarthritis of knee (principal)
CPT/HCPCS: 20611

== ENCOUNTER → 2024-02-25 07:55 | Outpatient (BNVA) | payer MEDICARE, SELFPAY | PROVIDERS: PCP Internal Medicine; Visit Provider Internal Medicine | DX: M17.0 Bilateral primary osteoarthritis of knee (principal) | CPT/HCPCS: 20610; 20611; J7323 ==

== ENCOUNTER 2024-03-04 07:12 | Outpatient (REF) | payer MEDICARE, SELFPAY | END 2024-03-04 07:13 | disposition home or self-care (01) | LOC: CF 07:12 | PROVIDERS: Visit Provider Internal Medicine | DX: M54.16 Radiculopathy, lumbar region (principal) | CPT/HCPCS: 64483; J1100; Q9967 ==

== ENCOUNTER 2024-03-04 07:43 | Outpatient (AMB) | payer MEDICARE, SELFPAY ==
[2024-03-04 07:45] VITALS: BP 160/63; PULSE 84; RESP 16; O2SAT 100
--- NOTE | 2024-03-04 08:38 | MHC.OFFVIS ---
Vital Signs 03/04/24 07:45 03/04/24 08:39 BP 160/63 H 170/75 H Blood Pressure Location Rt brachial Rt brachial Position Sitting Sitting Respiration 16 18 Pulse 84 82 Pulse Source Pulse Oximeter Pulse Oximeter Pulse Oximetry (%) 100 99 Oxygen Delivery Method Room Air Room Air Comment Pre-op Post-op Intake Visit Reasons: Right L5 TFESI Allergies No Known Allergies Allergy (Verified 02/25/24 08:01) HPI HPI Right L5 TFESI: Details: Patient presents for scheduled procedure. Denies any recent cough, cold, infection, fever or other significant changes in medical history since last office visit. [facility] Medical History (Updated 01/16/24 @ 09:03 by Javy Ambriz MD) Tick bite Situational stress Polyarthritis Palpitations Osteoporosis Obesity Low back pain Knee pain Hypothyroidism Hypertensive disorder Hypercholesterolemia Healthcare maintenance Diastolic dysfunction GERD (gastroesophageal reflux disease) Full thickness rotator cuff tear Dyspnea Cervical spondylosis Asthma Anxiety Actinic keratosis Abdominal pain Social History Patient Tobacco Use Status: Never used Tobacco Physical Exam Vital Signs: Last Vital Signs Pulse 82 03/04/24 08:39 Resp 18 03/04/24 08:39 BP 170/75 H 03/04/24 08:39 Pulse Ox 99 03/04/24 08:39 Oxygen Delivery Method Room Air 03/04/24 08:39 Office Procedures Details: Transforaminal epidural steroid injection, Right L5 After obtaining written consent, pre-procedure blood pressure and heart rate were stable and recorded in the nursing record. The patient was placed in the prone position on the fluoroscopy table. The lumbosacral area was prepped with chloraprep, allowed to dry and draped in sterile fashion. Using fluoroscopy, the skin overlying our target was anesthetized with 0.5% lidocaine. A 22 gauge 3.5 inch spinal needle was advanced to the safe triangle in the upper pole of the right L5 foramen. No paresthesias were elicited with needle placement and aspiration was negative for blood and CSF. Correct needle position was confirmed with approximately 1 ml contrast dye (Omnipaque 180 mg/ml) injected under real-time fluoroscopy. No evidence of vascular or intrathecal uptake was seen and there was both epidural and peripheral spread of the contrast agent. 10 mg dexamethasone plus 1 ml containing 0.5% lidocaine was slowly injected. The needle was flushed and removed. The skin was cleansed and a sterile bandages were applied. The patient tolerated the procedure well and no complications were encountered. Following the procedure the patient's vital signs were stable. The patient was discharged home in good condition with post-procedural instructions. Time Out: Immediately prior to the procedure, the following was verbally confirmed that there is a signed consent form and that the correct patient, planned procedure, site and side are consistent with documentation and that necessary equipment and/or blood products are available prior to the start of the case. Complications: none EBL: <5 cc 92949 - Lumbar/Sacral Procedure code (CPT) selection complete Assessment & Plan Assessment & Plan (1) Lumbar radiculopathy: Code(s): M54.16 - Radiculopathy, lumbar region Category: Medical Plan Patient is status post right L5 TFESI. Patient tolerated procedure well and was discharged home in stable condition with discharge instructions. All questions were answered. We will follow-up via telephone or in clinic to assess response to therapy. A follow-up appointment was made during today's visit. Orders: Orders FL guidance in treatment room Today M54.16 - Radiculopathy, lumbar region Coding Level of Care Code Procedure Only Diagnoses Lumbar radiculopathy M54.16 CPT Codes Transforaminal Epidural Steroid Inj - TESI 3: 89888 - Lumbar/Sacral ([id number])
[2024-03-04 08:39] VITALS: BP 170/75; PULSE 82; RESP 18; O2SAT 99
== END 2024-03-04 08:49 | disposition home or self-care (01) ==
LOC: HO.PMCPRC 07:43
PROVIDERS: PCP Internal Medicine; Visit Provider Internal Medicine
DX: M54.16 Radiculopathy, lumbar region (principal)
CPT/HCPCS: 64483

== ENCOUNTER 2024-03-15 09:23 | Outpatient (AMB) | payer MEDICARE, SELFPAY ==
--- NOTE | 2024-03-15 09:41 | A.OFFVIS_ITS ---
Vital Signs 03/15/24 09:42 Height 5 ft 4 in Weight 177 lb BMI 30.4 BP 160/74 H Blood Pressure Location Lt brachial Position Sitting Respiration 15 Pulse 84 Pulse Source Pulse Oximeter Pulse Oximetry (%) 99 Oxygen Delivery Method Room Air Intake Visit Reasons: s/p right L5 TFESI/ Euflexxa Allergies No Known Allergies Allergy (Verified 03/15/24 09:43) Medication List - Last Reconciled 03/15/24 by Kristie Marvin LPN atorvastatin 5 mg PO BEDTIME denosumab (Prolia) 60 mg subcut [id number] levothyroxine 50 mcg PO DAILY lisinopril 10 mg PO BEDTIME multivitamin 1 tab PO DAILY omeprazole 20 mg PO DAILY HPI HPI s/p right L5 TFESI/ Euflexxa: Details: 78-year-old female who presents today to the office for a status post right L5 transforaminal epidural steroid injection and Euflexxa injection. The patient reports 75% relief following the procedure. She can climb the stairs that she was unable to do in the past. She has mild pain in her right knee. She has constant paresthesia and numbness in her lower extremities. It affects her sleep. She has tried gabapentin in the past with minimal relief. She does gentle yoga and chair exercises at home. She inquired about meeting the equipment validation specialist. Past procedures 03/04/2024: Transforaminal epidural steroid injection, Right L5: 75% relief. 02/25/24: bilateral Euflexxa injections: 70% relief. 02/20/24: Bilateral intra-articular Euflexxa injections:? 50% relief.? 02/11/34: Bilateral intra-articular Euflexxa injections: 50% relief.? 12/18/23: Interlaminar epidural steroid injection, L5/S1, Right parasaggital: 30% relief. 05/01/22: Sprint saphenous PNS Trial ? excellent relief for 8-10 months. 04/03/22: Right Parasagittal Interlaminar L5-S1 NYASIA ? 80% relief. 03/13/22: Right Diagnostic Saphenous NB ? 90% relief for one day. [facility] Medical History (Updated 01/16/24 @ 09:03 by Javy Ambriz MD) Tick bite Situational stress Polyarthritis Palpitations Osteoporosis Obesity Low back pain Knee pain Hypothyroidism Hypertensive disorder Hypercholesterolemia Healthcare maintenance Diastolic dysfunction GERD (gastroesophageal reflux disease) Full thickness rotator cuff tear Dyspnea Cervical spondylosis Asthma Anxiety Actinic keratosis Abdominal pain Social History Patient Tobacco Use Status: Never used Tobacco Review of Systems Const All systems reviewed & are unremarkable except as noted in HPI and below Physical Exam Vital Signs: Last Vital Signs Pulse 84 03/15/24 09:42 Resp 15 03/15/24 09:42 BP 160/74 H 03/15/24 09:42 Pulse Ox 99 03/15/24 09:42 Oxygen Delivery Method Room Air 03/15/24 09:42 BMI result Body Mass Index 30.4 General: Appears afebrile. Alert and oriented. Mood and affect appropriate. Follows and participates in conversation appropriately. Respiratory effort is unlabored. Able to transition from sit to stand unassisted. Ambulates with bilaterally normal heel strike and toe off. Results Reviewed Results Reviewed: I reviewed her MRI again today, which showed a small synovial cyst arising from the right L5-S1 facet joint in the posterior aspect of the right L5 foraminal region. Assessment & Plan Assessment & Plan (1) Lumbar radiculopathy: Code(s): M54.16 - Radiculopathy, lumbar region Category: Medical (2) Lumbar spondylosis: Code(s): M47.816 - Spondylosis without myelopathy or radiculopathy, lumbar region Category: Medical (3) Osteoarthritis of right knee: Code(s): M17.11 - Unilateral primary osteoarthritis, right knee Category: Medical Plan Discussed steroid injections (twice a year) vs. PRP injection as possible treatment options. I reviewed her MRI again today, which showed a small synovial cyst arising from the right L5-S1 facet joint in the posterior aspect of the right L5 foraminal region. I prescribed gabapentin 75 mg QHS for the pain and tingling for a month. She will call or visit us if her pain worsens in the future. If her right leg tingling does not improve after her trial of pregabalin, we will attempt a percutaneous drainage of the synovial cyst via transforaminal route. Scribed for Dr. Ambriz by Leo Robles medical unit secretary, on 03/15/2024. I, Dr. Ambriz, have personally reviewed and agree with the information entered by the scribe. Medications: New pregabalin 75 mg PO BEDTIME 30 caps 0RF Coding Level of Care Code Est Pt Level 4 (09932) Diagnoses Lumbar radiculopathy M54.16 Lumbar spondylosis M47.816 Osteoarthritis of right knee M17.11
[2024-03-15 09:42] VITALS: BP 160/74; PULSE 84; RESP 15; O2SAT 99; BMI 30.4
== END 2024-03-15 09:57 | disposition home or self-care (01) ==
PROVIDERS: PCP Internal Medicine; Visit Provider Internal Medicine
DX: M54.16 Radiculopathy, lumbar region (principal); M47.816 Spondylosis without myelopathy or radiculopathy, lumbar region; M17.11 Unilateral primary osteoarthritis, right knee
CPT/HCPCS: 99214

== ENCOUNTER → 2024-03-15 09:23 | Outpatient (BNVA) | payer MEDICARE, SELFPAY | PROVIDERS: PCP Internal Medicine; Visit Provider Internal Medicine | DX: M17.11 Unilateral primary osteoarthritis, right knee (principal); M54.16 Radiculopathy, lumbar region; M47.816 Spondylosis without myelopathy or radiculopathy, lumbar region | CPT/HCPCS: 99212 ==

== ENCOUNTER 2025-02-25 11:13 | Outpatient (AMB) | payer MEDICARE, SELFPAY ==
--- NOTE | 2025-02-25 11:17 | A.OFFVIS_ITS ---
Vital Signs 02/25/25 11:18 Height 5 ft 4 in Weight 174 lb BMI 29.9 BP 177/79 H Blood Pressure Location Lt brachial Position Sitting Respiration 16 Pulse 84 Pulse Source Pulse Oximeter Pulse Oximetry (%) 99 Oxygen Delivery Method Room Air Intake Visit Reasons: LOW BACK AND LEG PAIN Casting Coordinator Required: No Allergies No Known Allergies Allergy (Verified 02/25/25 11:19) Medication List - Last Reconciled 02/25/25 by Kristie Marvin LPN atorvastatin 5 mg PO BEDTIME denosumab (Prolia) 60 mg subcut [id number] levothyroxine 50 mcg PO DAILY lisinopril 10 mg PO BEDTIME multivitamin 1 tab PO DAILY omeprazole 20 mg PO DAILY HPI HPI LOW BACK AND LEG PAIN: Details: History of Present Illness The patient is an 79-year-old female presenting with bilateral leg pain and sleep disturbance. The patient reports that her leg pain has worsened recently, affecting both legs, particularly the knees and extending to the calves and sometimes the ankles and toes. The pain is exacerbated by activities such as climbing stairs and is associated with tingling in the toes. She has a history of arthritis, confirmed by x-rays of the knees and hips, which revealed arthritic changes. The patient also experiences significant sleep disturbance, which she attributes to the leg pain. She has not been taking pregabalin, which was previously prescribed, due to running out of the medication and not refilling it as she was doing well at the time. She has attempted home exercises such as chair yoga but has not engaged in consistent physical therapy. Pain Description - Onset: Recent worsening of bilateral leg pain - Quality: Pain extends from knees to calves, sometimes affecting ankles and toes - Exacerbating factors: Climbing stairs - Associated symptoms: Tingling in toes - Interference: Pain disrupts sleep Physical Exam - Musculoskeletal: Positive straight leg raise test bilaterally, indicating possible lumbar radiculopathy Results - Imaging: X-rays of knees and hips showed arthritic changes Pain Management - Affect: Pain disrupts sleep, impacting daily functioning - Analgesia: Previously prescribed pregabalin, not currently taken - Activities of Daily Living: Pain affects mobility, particularly on stairs [facility] Medical History (Updated 01/16/24 @ 09:03 by Javy Ambriz MD) Tick bite Situational stress Polyarthritis Palpitations Osteoporosis Obesity Low back pain Knee pain Hypothyroidism Hypertensive disorder Hypercholesterolemia Healthcare maintenance Diastolic dysfunction GERD (gastroesophageal reflux disease) Full thickness rotator cuff tear Dyspnea Cervical spondylosis Asthma Anxiety Actinic keratosis Abdominal pain Social History Patient Tobacco Use Status: Never used Tobacco Physical Exam Vital Signs: Last Vital Signs Pulse 84 02/25/25 11:18 Resp 16 02/25/25 11:18 BP 177/79 H 02/25/25 11:18 Pulse Ox 99 02/25/25 11:18 Oxygen Delivery Method Room Air 02/25/25 11:18 BMI result Body Mass Index 29.9 Assessment & Plan Assessment & Plan (1) Lumbar radiculopathy: Code(s): M54.16 - Radiculopathy, lumbar region Category: Medical (2) Osteoarthritis of knees, bilateral: Code(s): M17.0 - Bilateral primary osteoarthritis of knee Category: Medical Plan Plan - Prescribe pregabalin 75 mg at bedtime to manage nerve pain and improve sleep. - Refer to physical therapy for lumbar radiculopathy and knee pain management. - Plan for L5-S1 intralaminar epidural steroid injection to address bilateral lumbar radicular pain. Patient was informed and verbally consented to the use of an ambient scribe for clinic note documentation during this visit. Discussion Notes I discussed with the patient the management options for her bilateral leg pain and sleep disturbance, including the re-initiation of pregabalin to help with nerve pain and sleep. We also talked about the benefits of physical therapy for her lumbar radiculopathy and knee pain, and the plan to proceed with an L5-S1 intralaminar epidural steroid injection. Patient Instructions - Take pregabalin 75 mg at bedtime as prescribed. - Attend physical therapy sessions as scheduled. - Follow up for the scheduled L5-S1 epidural steroid injection. Orders: Orders PT Evaluation and Treatment 02/25/25 M54.16 - Radiculopathy, lumbar region, M17.0 - Bilateral primary osteoarthritis of knee Medications: New pregabalin 75 mg PO BEDTIME 30 caps 3RF Coding Level of Care Code Est Pt Level 4 (90603) Diagnoses Lumbar radiculopathy M54.16 Osteoarthritis of knees, bilateral M17.0
[2025-02-25 11:18] VITALS: BP 177/79; PULSE 84; RESP 16; O2SAT 99; BMI 29.9
--- OUTSIDE RECORDS SUMMARY | 2025-02-25 11:19 | XMS_ITS | Patient Health Record ---
Author Organization [facility] Address [address] [place] [address] Care Team Providers Care Snap Shearer Name Role Phone Marya Baird MD Primary Care Provider Esau Mclaughlin Unavailable [phone] Allergies No Known Allergies Reason For Referral No Information Medications Medication SIG (Take, Route, Frequency, Duration) Notes Start Date End Date Status Lisinopril Active Atorvastatin Calcium 10 MG Oral; Duration: 90 Days Active Prolia Active Levothyroxine Sodium 50 MCG TAKE 1 TABLE T BY MOUTH DAILY Oral; Duration: 90 Days Active Omeprazole 20 MG Oral; Duration: 90 Days Active Social History Tobacco Use: Social History Observation Description Date Details (start date - stop date) Former Smoker NA - NA Tobacco Use/Smoking Question Answer Notes Are you a: former smoker Additional Findings: Tobacco Non-User Current no n-smoker Alcohol Screen Question Answer Notes Did you have a drink containing alcohol in the p ast year? Yes Points 0 Interpretation Negative Tobacco use other than smoking: Question Answer Notes Are you an other tobacco user? No Problems Problem Type SNOMED Code ICD Code Onset Dates Problem Status W/U Status Risk Notes Problem Acquired hammer toe of right foot (098857297523 9105) Other hammer toe(s) (acquired), right foot (M20.41) Active confirmed Problem Acquired hammer toe of left foot (506345467629 9103) Other hammer toe(s) (acquired), left foot (M20.42) Active confirmed Problem Spondylosis of lumbosacral spine with radiculopathy (M47.27) Active confirmed Plan Of Treatment Pending Test Test Name Order Date X ray : Foot, left 3V 01/06/2024 X ray : Foot, right 3V 01/06/2024 Insurance Providers Payer Name Payer Address Payer Phone Subscriber Number Group Number Insured Name Patient Relationship to Insured Coverage Start Date Coverage End Date Medicare National Govt Sv[employer] [address] [place] [address] [id number] Milagros Franklin Self - patient is the insured [employer] [address] [place] [address] [id number] Milagros Franklin Self - patient is the insured Medical (General) History Medical History History ICD Code asthma Back,Hip,and Knee pain Cataracts covid-19 High blood pressure Numbness Osteoporosis Reflux ( GERD) thyroid Measles Mumps Chicken pox Surgical History Surgery Date(Month/Year) tonsillectomy 1950 cataract surgery 08/28/1995 cataract surgery 05/16/1994
--- OUTSIDE RECORDS SUMMARY | 2025-02-25 11:19 | XMS_ITS | Clinical Summary ---
Author Organization [facility] Address [address] [place] [address] Phone Care Team Providers Care Biztalk Administrator Name Role Phone Marya Baird MD Primary Care Provider [phone] Family History Medical History Relation Name Comments Breast cancer Father Breast cancer Mother Relation Name Status Comments Father Mother Social History Tobacco Use Types Packs/Day Years Used Date Smoking Tobacco: Never Assessed Comments No Sex and Gender Information Value Date Recorded Sex Assigned at Not on file Legal Sex Female 8:25 PM EST Gender Identity Not on file Sexual Orientation Not on file Obstetrics History Para Term AB IAB SAB Ectopic Multiple Livin g Live Births 2 Last Filed Vital Signs Vital Sign Reading Time Taken Comments Blood Pressure - - Pulse - - Temperature - - Respiratory Rate - - Oxygen Saturation - - Inhaled Oxygen Concentration - - Weight 74.8 kg (165 lb) 06/02/2024 11:31 AM EST Height 157.5 cm (5' 2 ) 06/02/2024 11:31 AM EST Body Mass Index 30.18 06/02/2024 11:31 AM EST Plan of Treatment Health Maintenance Due Date Last Done Comments Cholesterol Screening (Lipid Panel) 06/22/2022 Falls Risk Assessment 06/22/2022 Medicare Annual Wellness Visit 06/22/2022 Osteoporosis Screening (Bone Density Screening) 06/22/2022 Social Influencers of Health Screening 06/22/2022 Hypertension/CHF/CAD Annual BMP Blood Test 06/02/2024 Depression Screening 07/21/2024 COVID-19 Vaccine ( season) 2024 03/27/2024, 04/30/2023, 02/12/2023, Additional history exists Influenza Vaccine (#1) 2025 , 05/20/2022, 04/20/2021, Additional history exists DTaP,Tdap,and Td Vaccines (2 - Td or Tdap) 04/28/2031 04/28/2021 Pneumococcal Vaccine: 50+ Years Completed 02/12/2023 Zoster Vaccines Completed 05/13/2023, 03/13/2023 RSV Immunization Adult Patients Completed 03/27/2024 HIB Vaccines Aged Out No longer eligi ble based on patient's age to complete this topic HPV Vaccines Aged Out No longer eligi ble based on patient's age to complete this topic Hepatitis A Vaccines Aged Out No long er eligible based on patient's age to complete this topic Hepatitis B Vaccines Aged Out No long er eligible based on patient's age to complete this topic IPV Vaccines Aged Out No longer eligi ble based on patient's age to complete this topic MMR Vaccines Aged Out No longer eligi ble based on patient's age to complete this topic Meningococcal ACWY Vaccine Aged Out N o longer eligible based on patient's age to complete this topic Meningococcal B Vaccine Aged Out No l onger eligible based on patient's age to complete this topic RSV Immunization Patients Under 20 months Aged Out No longer eligible based on patient's age to complete this topic Varicella Vaccines Aged Out No longer eligible based on patient's age to complete this topic Insurance MEDICARE [facility] Care Teams Biztalk Administrator Relationship Specialty Start Date End Date Marya Baird MD PCP - General Internal Medicine 05/09/24
== END 2025-02-25 12:04 | disposition home or self-care (01) ==
LOC: HO.PMC 11:13
PROVIDERS: PCP Internal Medicine; Visit Provider Internal Medicine
DX: M54.16 Radiculopathy, lumbar region (principal); M17.0 Bilateral primary osteoarthritis of knee
CPT/HCPCS: 99214

== ENCOUNTER → 2025-02-25 11:13 | Outpatient (BNVA) | payer MEDICARE, SELFPAY | PROVIDERS: PCP Internal Medicine; Visit Provider Internal Medicine | DX: M54.16 Radiculopathy, lumbar region (principal); M17.0 Bilateral primary osteoarthritis of knee | CPT/HCPCS: 99212 ==

== ENCOUNTER 2025-03-22 07:11 | Outpatient (REF) | payer MEDICARE, SELFPAY ==
--- OUTSIDE RECORDS SUMMARY | 2025-03-22 07:14 | XMS_ITS | Clinical Summary ---
Author Organization [facility] Address [address] [place] [phone] Phone Care Team Providers Care Dust Mixer Name Role Phone Marya Baird MD Primary Care Provide r Allergies No known active allergies Medications atorvastatin (LIPITOR) 10 MG tablet Take 10 mg by mouth daily. 2 Active fluticasone propionate (FLOVENT HFA) 110 mcg/actuation inhaler Flovent HFA 110 mcg/actuation aerosol inhaler INHALE 2 PUFFS BY MOUTH TWICE DAILY NEEDED ASTHMA EXACERBATION 1 Active levothyroxine (SYNTHROID, LEVOTHROID) 50 MCG tablet levothyroxine 50 mcg tablet 1 Active LORazepam (ATIVAN) 0.5 MG tablet Take 0.5 tablets by mouth nightly at bedtime as needed. 1 Active omeprazole (PRILOSEC) 20 MG capsule Take 20 mg by mouth daily as needed. 1 Active Social History Tobacco Use Types Packs/Day Years Used Date Smoking Tobacco: Never Smokeless Tobacco: Never Alcohol Use Standard Drinks/Week Comments Yes 0 (1 standard drink = 0.6 oz pur e alcohol) Occasional Education Answer Date Recorded Are you interested in more education? Not on diane e 11/16/2022 Are you concerned about learning? Not on file 11/16/2022 No 11/16/2022 No 11/16/2022 Digital Access Answer Date Recorded No 12/15/2022 No 12/15/2022 No 12/15/2022 Reliable internet access at home? Not on file 12/15/2022 Device with a working camera? Not on file Comments Unknown Sex and Gender Information Value Date Recorded Sex Assigned at Not on file Legal Sex Female 10:08 AM EDT Gender Identity Not on file Sexual Orientation Not on file Plan of Treatment Health Maintenance Due Date Last Done Comments TSH LEVEL 1945 DEPRESSION SCREENING 1955 PNEUMOCOCCAL VACCINES (50+ years) (1 of 1 - PCV) 12/16/1993 ZOSTER VACCINES (1 of 2) 12/16/1993 OSTEOPOROSIS SCREENING INITI AL (ONE-TIME) 12/16/2008 RSV VACCINE (1 - 1-dose 75+ series) 12/16/2018 COVID-19 VACCINE (4 - 2023-2 5 season) 2024 04/20/2021, 09/18/2020, 08/23/2020 Adult Td,Tdap Booster 04/28/2031 04/28/2021 HEPATITIS A VACCINES Aged Out No long er eligible based on patient's age to complete this topic HIB VACCINES Aged Out No longer eligi ble based on patient's age to complete this topic MENINGOCOCCAL VACCINES (ACWY) Aged Out No longer eligible based on patient's age to complete this topic MENINGOCOCCAL VACCINES (B) Aged Out N o longer eligible based on patient's age to complete this topic Medical Devices Not on file Insurance [employer] SUPPLEMENT MEDICARE PART A & B [employer] MEDEX SUPPLEMENT MEDICARE PART A & B [employer] MEDEX SUPPLEMENT MEDICARE PART A & B [employer] MEDEX SUPPLEMENT MEDICARE PART A & B [employer] MEDEX SUPPLEMENT MEDICARE PART A & B [employer] MEDEX SUPPLEMENT MEDICARE PART A & B [employer] MEDEX SUPPLEMENT MEDICARE PART A & B [employer] MEDEX SUPPLEMENT MEDICARE PART A & B [employer] MEDEX SUPPLEMENT MEDICARE PART A & B Care Teams Dust Mixer Relationship Specialty Start Date End Date Marya Baird MD [address] [place] [id number] PCP - General Internal Medicine 10/10/21 Additional Source Comments The information contained in this document represents components of the legal health record. It is not the complete legal health record.[facility]
--- OUTSIDE RECORDS SUMMARY | 2025-03-22 07:14 | XMS_ITS | Patient Health Record ---
[facility] Address [address] [place] [address] Care Team Providers Care Christmas Tree Farmer Name Role Phone Marya Baird MD Primary Care Provider Esau Mclaughlin Unavailable [phone] Allergies No Known Allergies Reason For Referral [...] Problem Acquired hammer toe of right foot (25782414146145 05) Other hammer toe(s) (acquired), right foot (M20.41) Active confirmed Problem Acquired hammer toe of left foot (20495591901599 03) Other hammer toe(s) (acquired), left foot (M20.42) Active confirmed Problem Lumbosacral spondylosis without myelopathy (02141231) Spondylosis of lumbosacral spine with radiculopathy (M47.27) [...] Inc [address] [place] [address] [id number] Milagros Franklin Self - patient is the insured [employer] [address] [place] [address] [id number] Milagros Franklin Self - patient is the insured Medical (General) History Medical History History ICD Code asthma Back,Hip,and Knee pain Cataracts covid-19 High blood pressure Numbness Osteoporosis Reflux ( GERD) thyroid Measles Mumps Chicken pox Surgical History Surgery Date(Month/Year) tonsillectomy 1950 cataract surgery 08/28/1995 cataract surgery 05/16/1994
--- OUTSIDE RECORDS SUMMARY | 2025-03-22 07:14 | XMS_ITS | Encounter Summary ---
Author Organization [facility] Address [address] [place] [phone] Phone Care Team Providers Care City Jailer Name Role Phone Marya Baird MD Primary Care Provide r Encounter Details Date Type Department Care Team (Late st Contact Info) Description 10/12/2021 Ancillary Orders [facility],Outside Imaging [address] [place] [address] System, Provider Not In, [place] [address] Social History Tobacco Use Types Packs/Day Years Used Date Smoking Tobacco: Never Smokeless Tobacco: Never Alcohol Use Standard Drinks/Week Comments Yes 0 (1 standard drink = 0.6 oz pur e alcohol) Occasional Comments Unknown Sex and Gender Information Value Date Recorded Sex Assigned at Not on file Legal Sex Female 10:08 AM EDT Gender Identity Not on file Sexual Orientation Not on file documented as of this encounter Plan of Treatment Not on file documented as of this encounter Results * XR Upper Extremity Outside (No Interpretation) (10/09/2021 12:00 AM EDT) Narrative SYSTEMGENERATED, DOCUMENTATION - 10/12/2021 8:29 AM EDT This study is for PACS storage only and not for interpretation. us Provider Not In System PhD IMG OUTSIDE IMAGING W /OUT INTERPRETATION Final Result documented in this encounter Visit Diagnoses Not on filedocumented in this encounter Care Teams City Jailer Relationship Specialty Start Date End Date Marya Baird MD [address] [place] [address] [id number] PCP - General Internal Medicine 10/10/21 documented as of this encounter Additional Source Comments The information contained in this document represents components of the legal health record. It is not the complete legal health record.[facility]
--- OUTSIDE RECORDS SUMMARY | 2025-03-22 07:14 | XMS_ITS | Clinical Summary ---
Author Organization [facility] Address [address] [place] [address] Phone Care Team Providers Care Biology Internship Name Role Phone Marya Baird MD Primary Care Provider [phone] Family History Medical History Relation Name Comments [...] to complete this topic Insurance MEDICARE [facility] Care Teams Biology Internship Relationship Specialty Start Date End Date Marya Baird MD PCP - General Internal Medicine 05/09/24
== END 2025-03-22 07:12 | disposition home or self-care (01) ==
LOC: HO.HOSX 07:11
PROVIDERS: Visit Provider Orthopaedic Surgery
DX: S83.241A Other tear of medial meniscus, current injury, right knee, initial encounter (principal); M25.561 Pain in right knee; M25.562 Pain in left knee; Z79.1 Long term (current) use of non-steroidal anti-inflammatories (NSAID); X58.XXXA Exposure to other specified factors, initial encounter
CPT/HCPCS: 99202

== ENCOUNTER 2025-03-22 08:51 | Outpatient (AMB) | payer MEDICARE, SELFPAY ==
--- NOTE | 2025-03-22 09:01 | MHC.OFFVIS ---
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 The patient describes her pain as sharp in nature. Her symptoms have gotten worse over the last 10 years in spite of continued non operative treatments. She has failed the last 6 weeks of conservative treatment which has included Tylenol, anti-inflammatory medicines, physical therapy exercises and a home exercise program. She states that her right knee will give out several times per day. Allergies No Known Allergies Allergy (Verified 03/22/25 09:04) Medication List - Last Reviewed 03/22/25 by Maya Espinal atorvastatin 5 mg PO BEDTIME denosumab (Prolia) 60 mg subcut [id number] levothyroxine 50 mcg PO DAILY lisinopril 10 mg PO BEDTIME multivitamin 1 tab PO DAILY omeprazole 20 mg PO DAILY pregabalin 75 mg PO BEDTIME [facility] Medical History (Updated 03/22/25 @ 09:26 by Srinath Urbina MD) Tick bite Situational stress Polyarthritis Palpitations Osteoporosis Obesity Low back pain Knee pain Hypothyroidism Hypertensive disorder Hypercholesterolemia Healthcare maintenance Diastolic dysfunction GERD (gastroesophageal reflux disease) Full thickness rotator cuff tear Dyspnea Cervical spondylosis Asthma Anxiety Actinic keratosis Abdominal pain Social History Patient Tobacco Use Status: Never used Tobacco Physical Exam Vital Signs: BMI result Body Mass Index 32.0 Const Other: Well-nourished well-developed very friendly female awake alert and oriented x3 in no acute distress Extrem Other: Bilateral lower extremity examination shows good capillary refill, no skin lesions noted, normal sensation light touch Right knee examination shows a minimal effusion, mild crepitus with range of motion, tenderness along her medial joint line, positive Jericho's test, no instability Results Reviewed Results Reviewed: X-rays of the patient's bilateral knees taken previously show mild diffuse joint space narrowing, no acute bony abnormalities Assessment & Plan Assessment & Plan (1) Tear of medial meniscus of right knee: Code(s): S83.241A - Other tear of medial meniscus, current injury, right knee, initial encounter Category: Medical Plan Ms. Franklin presents with bilateral knee pains and mechanical symptoms, right greater than left, most likely due to a medial meniscus tear. Thus, I will send the patient for an MRI of her right knee for further evaluation. I will see her back once the MRI is completed to discuss the findings and treatment options. Feel free to call me at any time should questions regarding her orthopedic management arise. Thank you very much for asking me to see this very friendly patient. I spent 20 minutes in reviewing the patient's records and imaging studies, seeing the patient and documenting in the medical record. Orders: Orders XR Knee Sherwin 3V Today M25.561 - Pain in right knee, M25.562 - Pain in left knee MR knee RT wo con 03/23/25 S83.241A - Other tear of medial meniscus, current injury, right knee, initial encounter Coding Level of Care Code New Pt Level 3 (12583) Complex EM visit Add On G2211 Diagnoses Tear of medial meniscus of right knee S83.241A
[2025-03-22 09:02] VITALS: BMI 32.0
== END 2025-03-22 09:28 | disposition home or self-care (01) ==
LOC: HO.HOS 08:52
PROVIDERS: PCP Internal Medicine; Visit Provider Orthopaedic Surgery
DX: S83.241A Other tear of medial meniscus, current injury, right knee, initial encounter (principal)
CPT/HCPCS: 99203; G2211

== ENCOUNTER → 2025-04-22 16:15 | Outpatient (BNV) | payer MEDICARE, SELFPAY | PROVIDERS: PCP Internal Medicine; Visit Provider Radiology Diagnostic Radiology | DX: M17.11 Unilateral primary osteoarthritis, right knee (principal); M25.461 Effusion, right knee; M65.961 Unspecified synovitis and tenosynovitis, right lower leg; M71.21 Synovial cyst of popliteal space [Baker], right knee | CPT/HCPCS: 73721 ==

== ENCOUNTER 2025-04-22 16:17 | Outpatient (REF) | payer MEDICARE, SELFPAY ==
--- NOTE | ~2025-04-22 | MR_ITS ---
EXAMINATION: MR KNEE WITHOUT CONTRAST, RIGHT CLINICAL INFORMATION: Grinding sensation, pain and discomfort Prior X-rays performed February 15, 2025 at [facility] FINDINGS: Menisci: Lateral Meniscus: Anterior and body appears degenerated, frayed, and torn. There is myxoid degeneration the posterior horn. The inner free margin is degenerated and frayed. The body of the meniscus is moderately extruded from the joint line. Medial Meniscus: No tear is identified. There is mild extrusion of the meniscal body. ACL/PCL: ACR striated with increased signal. PCL is intact. Extensor mechanism: There is a complex joint effusion. There is reticulated edema involving Hoffa's fat pad. MCL/LCL: MCL and LCL complex are intact. Articular cartilage: Patellofemoral Compartment: There is mild thinning involving less than half the cartilage thickness in the lateral facet of patella and in the medial facet near median ridge. There is moderate thinning involving more than half the cartilage thickness in the lower pole. There is moderate thinning and articular cartilage in the lower extremity. Lateral Compartment: There is diffuse deep partial and full-thickness cartilage loss through the central weightbearing region lateral femoral condyle lateral tibial plateau mostly sparing the notch side of the joint. There is also full-thickness cartilage loss in the posterior femoral condyle sparing the far posterior superior condyle. Medial Compartment: There is a 6 mm deep partial and full-thickness cartilage defect in the central weightbearing region of the medial femoral condyle. Medial tibial cartilage is intact. Bones/Marrow: Moderate marrow signal changes present along the lateral side of the lateral femoral condyle and lateral tibial plateau. There are tricompartmental marginal osteophytes, largest along the lateral joint line. Soft tissues: There is a large multiloculated Antoine's cyst. There is a proximal tibiofibular joint effusion. There is trace fluid signal in the pes anserine bursa. MR/MR knee RT wo con IMPRESSION: Moderate osteoarthritis with joint effusion and synovitis. Anterior horn and body of the lateral meniscus is degenerated, frayed, and torn. There is moderate extrusion of the lateral meniscal body and mild extrusion of the medial meniscal body. There is a large multiloculated Antoine's cyst. There is an effusion involving the proximal tibiofibular joint. Mucoid degenerated ACL. There is trace fluid signal in the pes anserine bursa of uncertain significance. Electronically signed by: Regino Kasper MD 04/22/2025 05:22 PM EDT RP
--- OUTSIDE RECORDS SUMMARY | 2025-04-22 16:25 | XMS_ITS | Clinical Summary ---
Author Organization [facility] Address [address] [place] [address] Phone Care Team Providers Care Air Defense Artillery Officer Name Role Phone Marya Baird MD Primary [...] VACCINES (1 of 2) 12/16/1993 OSTEOPOROSIS SCREENING INITIAL (ONE-TIME) 12/16/2008 RSV VACCINE (1 - 1-dose 75+ series) 12/16/2018 INFLUENZA VACCINE (#1) 2025 , 03/22/2020, 03/22/2020, Additional history exists COVID-19 VACCINE ( season) 2025 04/20/2021, 09/18/2020, 08/23/2020 Adult Td,Tdap Booster 04/28/2031 [...] MEDEX SUPPLEMENT MEDICARE PART A & B Right Relevance MEDEX SUPPLEMENT MEDICARE PART A & B Right Relevance MEDEX SUPPLEMENT MEDICARE PART A & B Right Relevance MEDEX SUPPLEMENT MEDICARE PART A & B Right Relevance MEDEX SUPPLEMENT MEDICARE PART A & B Right Relevance MEDEX SUPPLEMENT MEDICARE PART A & B Right Relevance MEDEX SUPPLEMENT MEDICARE PART A & B MEDEX SUPPLEMENT MEDICARE PART A & B BLUE CROSS MEDEX SUPPLEMENT MEDICARE PART A & B Care Teams Air Defense Artillery Officer Relationship Specialty Start Date End Date Marya Baird MD [address] [address] PCP - General Internal Medicine 10/10/21 Additional Source Comments The information contained in this document represents components of the legal health record. It is not the complete legal health record.[facility]
--- OUTSIDE RECORDS SUMMARY | 2025-04-22 16:25 | XMS_ITS | Encounter Summary ---
Author Organization [facility] Address [address] [place] [phone] Phone Care Team Providers Care Shipyard Painting Supervisor Name Role Phone Marya Baird MD Primary Care Provide r Encounter Details Date Type Department Care Team (Late st Contact Info) Description 10/12/2021 Ancillary Orders [facility],Outside Imaging [address] [place] [address] System, Provider Not In, [place] [address] Social History Tobacco Use Types Packs/Day Years [...] on filedocumented in this encounter Care Teams Shipyard Painting Supervisor Relationship Specialty Start Date End Date Marya Baird MD [address] [place] [address] [phone] PCP - General Internal Medicine 10/10/21 documented as of this encounter Additional Source Comments The information contained in this document represents components of the legal health record. It is not the complete legal health record.[facility]
--- OUTSIDE RECORDS SUMMARY | 2025-04-22 16:25 | XMS_ITS | Clinical Summary ---
Author Organization [facility] Address [address] [place] [address] Phone Care Team Providers Care Hot Roller Name Role Phone Marya Baird MD Primary Care Provider [phone] Family History Medical History Relation Name Comments [...] Depression Screening 07/21/2024 COVID-19 Vaccine ( season) 2025 03/27/2024, 04/30/2023, 02/12/2023, Additional history exists Influenza [...] age to complete this topic Insurance MEDICARE [facility] Care Teams Hot Roller Relationship Specialty Start Date End Date Marya Baird MD PCP - General Internal Medicine 05/09/24
--- OUTSIDE RECORDS SUMMARY | 2025-04-22 16:25 | XMS_ITS | Patient Health Record ---
Author Organization [facility] Address [address] [place] [address] Care Team Providers Care Warehouse Consultant Name Role Phone Marya Baird MD Primary Care Provider Esau Doran Unavailable [phone] Allergies No Known Allergies Reason For Referral [...] Problem Acquired hammer toe of right foot (57613771900003 05) Other hammer toe(s) (acquired), right foot (M20.41) Active confirmed Problem Acquired hammer toe of left foot (51545185414938 03) Other hammer toe(s) (acquired), left foot (M20.42) Active confirmed Problem Lumbosacral spondylosis without myelopathy (54436943) 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
== END 2025-04-22 16:18 | disposition home or self-care (01) ==
LOC: HO.MRI 16:17
PROVIDERS: PCP Internal Medicine; Visit Provider Orthopaedic Surgery
DX: S83.241A Other tear of medial meniscus, current injury, right knee, initial encounter (principal)
CPT/HCPCS: 73721

== ENCOUNTER 2025-05-04 08:28 | Outpatient (AMB) | payer MEDICARE, SELFPAY ==
--- NOTE | 2025-05-04 08:32 | MHC.OFFVIS ---
Vital Signs 05/04/25 08:34 Height 5 ft 2 in Weight 175 lb BMI 32.0 Intake Visit Reasons: OV- Right Knee MRI review. Intake Note: Milagros is a 79 year old female who presents with complaints of progressively worsening right knee pain and giving way. The patient describes her pain as sharp in nature. Her symptoms have gotten worse over the last 10 years in spite of continued non operative treatments. She has failed the last 3 months of conservative treatment which has included Tylenol, anti-inflammatory medicines, physical therapy exercises and a home exercise program. The patient states that she has had cortisone injections in the past. The most recent cortisone injection gave her minimal relief. She has also had viscosupplementation injections which gave her fairly good relief. She wishes to hold off on surgery if at all possible. At this point her right knee pain is interfering with her activities of daily living and her ability to sleep well through the night. Allergies No Known Allergies Allergy (Verified 05/04/25 08:35) Medication List - Last Reconciled 05/04/25 by Srinath Urbina MD atorvastatin 5 mg PO BEDTIME denosumab (Prolia) 60 mg subcut [id number] levothyroxine 50 mcg PO DAILY lisinopril 10 mg PO BEDTIME multivitamin 1 tab PO DAILY omeprazole 20 mg PO DAILY pregabalin 75 mg PO BEDTIME [facility] Medical History (Updated 03/22/25 @ 09:26 by Srinath Urbina MD) Tick bite Situational stress Polyarthritis Palpitations Osteoporosis Obesity Low back pain Knee pain Hypothyroidism Hypertensive disorder Hypercholesterolemia Healthcare maintenance Diastolic dysfunction GERD (gastroesophageal reflux disease) Full thickness rotator cuff tear Dyspnea Cervical spondylosis Asthma Anxiety Actinic keratosis Abdominal pain Social History Patient Tobacco Use Status: Never used Tobacco Physical Exam Vital Signs: BMI result Body Mass Index 32.0 Const Other: Well-nourished well-developed very friendly female awake alert and oriented x3 in no acute distress Extrem Other: Left knee examination shows a minimal effusion, palpable crepitus with range of motion, pain with range of motion, no instability Results Reviewed Results Reviewed: MRI of the patient's right knee shows mild to moderate diffuse degenerative changes as well as a tear of the lateral meniscus, no acute bony abnormalities Assessment & Plan Assessment & Plan (1) Osteoarthritis of right knee: Code(s): M17.11 - Unilateral primary osteoarthritis, right knee Category: Medical Plan Ms. Rigoberto presents with right knee pain due to osteoarthritis. I had a lengthy discussion with the patient regarding the treatment options. She wishes to hold off on surgery for as long as possible. I agree with this plan. I will see if the patient's insurance company will cover a viscosupplementation injection, such as Durolane. I will see her back once the injection is available. Feel free to call me at any time should questions regarding her orthopedic management arise. I spent 21 minutes in reviewing the patient's records and imaging studies, seeing the patient and documenting in the medical record. Coding Level of Care Code Est Pt Level 3 (67811) Complex EM visit Add On G2211 Diagnoses Osteoarthritis of right knee M17.11
[2025-05-04 08:34] VITALS: BMI 32.0
--- OUTSIDE RECORDS SUMMARY | 2025-05-04 08:52 | XMS_ITS | Patient Health Record ---
[facility] Address [address] [place] [address] Care Team Providers Care Power Shovel Operator Name Role Phone Marya Baird MD Primary Care Provider Esau Doran Unavailable [phone] Allergies No Known Allergies Reason For Referral [...] Problem Acquired hammer toe of right foot (71388375553573 05) Other hammer toe(s) (acquired), right foot (M20.41) Active confirmed Problem Acquired hammer toe of left foot (63469430987801 03) Other hammer toe(s) (acquired), left foot (M20.42) Active confirmed Problem Lumbosacral spondylosis without myelopathy (38851697) 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
--- OUTSIDE RECORDS SUMMARY | 2025-05-04 08:52 | XMS_ITS | Clinical Summary ---
Author Organization [facility] Address [address] [place] [address] Phone Care Team Providers Care State Manager Name Role Phone Marya Baird MD Primary [...] MEDEX SUPPLEMENT MEDICARE PART A & B [employer] MEDEX SUPPLEMENT MEDICARE PART A & B [employer] MEDEX SUPPLEMENT MEDICARE PART A & B [employer] MEDEX SUPPLEMENT MEDICARE PART A & B [employer] MEDEX SUPPLEMENT MEDICARE PART A & B [employer] MEDEX SUPPLEMENT Member Subscriber Plan / Payer ( fective 2008-Present) Name:Milagros Franklin Relation to Subscriber:Self Name:Milagros Franklin Payer ID:[id number] (NAIC) Type:Indemnity Address: [facility] [id number] [place] [address] MEDICARE PART A & B [employer] MEDEX SUPPLEMENT MEDICARE PART A & B MEDEX SUPPLEMENT MEDICARE PART A & B BLUE CROSS MEDEX SUPPLEMENT MEDICARE PART A & B Care Teams State Manager Relationship Specialty Start Date End Date Marya Baird MD [address] [address] PCP - General Internal Medicine 10/10/21 Additional Source Comments The information contained in this document represents components of the legal health record. It is not the complete legal health record.[facility]
--- OUTSIDE RECORDS SUMMARY | 2025-05-04 08:53 | XMS_ITS | Clinical Summary ---
Author Organization [facility] Address [address] [place] [address] Phone Care Team Providers Care Cordwood Cutter Helper Name Role Phone Marya Baird MD Primary Care Provider [phone] Family History Medical History Relation Name Comments [...] age to complete this topic Insurance MEDICARE [facility] Care Teams Cordwood Cutter Helper Relationship Specialty Start Date End Date Marya Baird MD PCP - General Internal Medicine 05/09/24
--- OUTSIDE RECORDS SUMMARY | 2025-05-04 08:53 | XMS_ITS | Encounter Summary ---
Author Organization [facility] Address [address] [place] [address] Phone Care Team Providers Care Sales Order Coordinator Name Role Phone Marya Baird MD Primary Care Provide r Encounter Details Date Type Department Care Team (Late st Contact Info) Description 10/12/2021 Ancillary Orders [facility],Outside Imaging [address] [place] [address] System, Provider Not In, [place] [address] Social History Tobacco Use Types Packs/Day Years [...] on filedocumented in this encounter Care Teams Sales Order Coordinator Relationship Specialty Start Date End Date Marya Baird MD [address] [place] [address] [phone] PCP - General Internal Medicine 10/10/21 documented as of this encounter Additional Source Comments The information contained in this document represents components of the legal health record. It is not the complete legal health record.[facility]
== END 2025-05-04 08:46 | disposition home or self-care (01) ==
LOC: HO.HOS 08:29
PROVIDERS: PCP Internal Medicine; Visit Provider Orthopaedic Surgery
DX: M17.11 Unilateral primary osteoarthritis, right knee (principal)
CPT/HCPCS: 99213; G2211

== ENCOUNTER → 2025-05-04 08:28 | Outpatient (BNVA) | payer MEDICARE, SELFPAY | PROVIDERS: PCP Internal Medicine; Visit Provider Orthopaedic Surgery | DX: M17.11 Unilateral primary osteoarthritis, right knee (principal) | CPT/HCPCS: 99212 ==

== ENCOUNTER 2025-05-16 11:05 | Outpatient (AMB) | payer MEDICARE, SELFPAY ==
--- NOTE | 2025-05-16 11:09 | MHC.OFFVIS ---
Vital Signs 05/16/25 11:22 Height 5 ft 2 in Weight 175 lb BMI 32.0 Intake Visit Reasons: Bilateral knee pain Intake Note: Milagros is a 79 year old female who presents with complaints of bilateral knee pains. She describes her pains as sharp in nature. She has failed the last 3 months of conservative treatment which has included Tylenol, anti-inflammatory medicines, a home exercise program and physical therapy exercises. At this point her bilateral knee pains are interfering with her activities of daily living and her ability to sleep well through the night. She has had cortisone injections in the past which gave her minimal relief. She has not had a viscosupplementation injection. She wishes to hold off on surgery if at all possible. Allergies No Known Allergies Allergy (Verified 05/16/25 11:22) Medication List - Last Reconciled 05/16/25 by Srinath Urbina MD atorvastatin 5 mg PO BEDTIME denosumab (Prolia) 60 mg subcut [id number] levothyroxine 50 mcg PO DAILY lisinopril 10 mg PO BEDTIME multivitamin 1 tab PO DAILY omeprazole 20 mg PO DAILY pregabalin 75 mg PO BEDTIME [facility] Medical History Tick bite Situational stress Polyarthritis Palpitations Osteoporosis Obesity Low back pain Knee pain Hypothyroidism Hypertensive disorder Hypercholesterolemia Healthcare maintenance Diastolic dysfunction GERD (gastroesophageal reflux disease) Full thickness rotator cuff tear Dyspnea Cervical spondylosis Asthma Anxiety Actinic keratosis Abdominal pain Social History Patient Tobacco Use Status: Never used Tobacco Physical Exam Vital Signs: BMI result Body Mass Index 32.0 Const Other: Well-nourished well-developed very friendly female awake alert and oriented x3 in no acute distress Extrem Other: Bilateral knee examination shows minimal effusions, palpable crepitus with range of motion, pain with range of motion, no instability Office Procedures AMB Joint Injection/Aspiration Joint Injection/Aspiration Primary Site: right knee Prep: site was prepped using aseptic technique Injected: 60 mg of (Durolane viscosupplementation), with 4 mL of and 1% plain lidocaine Procedure: The patient tolerated the procedure well Coding 35350 - Large joint Procedure code (CPT) selection complete Results Reviewed Results Reviewed: X-rays of the patient's left knee taken today show mild to moderate joint space narrowing, subchondral sclerosis, no acute bony abnormalities X-rays of the patient's right knee taken previously show mild to moderate joint space narrowing, subchondral sclerosis, no acute bony abnormalities Assessment & Plan Assessment & Plan (1) Left knee pain: Code(s): M25.562 - Pain in left knee Category: Medical (2) Osteoarthritis of right knee: Code(s): M17.11 - Unilateral primary osteoarthritis, right knee Category: Medical (3) Osteoarthritis of left knee: Code(s): M17.12 - Unilateral primary osteoarthritis, left knee Category: Medical (4) Bilateral knee pain: Code(s): M25.561 - Pain in right knee; M25.562 - Pain in left knee Category: Medical Plan Ms. Franklin presents with bilateral knee pains due to osteoarthritis. The risks and benefits of a right knee Durolane viscosupplementation injection were discussed at length with the patient. The patient wished to proceed. She tolerated the injection well. She will continue with her home exercise program. I will also see if the patient's insurance company will cover a Durolane injection for her left knee. I will see her back once the injection is available. Feel free to call me at any time should questions regarding her orthopedic management arise. I spent 21 minutes in reviewing the patient's records and imaging studies, seeing the patient and documenting in the medical record. Orders: Orders XR knee LT 3V Today M25.562 - Pain in left knee AMB Joint Injection/Aspiration Today M17.11 - Unilateral primary osteoarthritis, right knee Coding Level of Care Code Est Pt Level 3 (41179) Complex EM visit Add On G2211 Diagnoses Left knee pain M25.562 Osteoarthritis of right knee M17.11 Osteoarthritis of left knee M17.12 Bilateral knee pain M25.561; M25.562 CPT Codes Coding - 02334 Large joint: 76028 - Large joint ([id number])
[2025-05-16 11:22] VITALS: BMI 32.0
--- OUTSIDE RECORDS SUMMARY | 2025-05-16 14:03 | XMS_ITS | Clinical Summary ---
Author Organization [facility] Address [address] [place] [address] Phone Care Team Providers Care Clerical Receptionist Name Role Phone Marya Baird MD Primary [...] MEDEX SUPPLEMENT MEDICARE PART A & B [employer] MEDEX SUPPLEMENT MEDICARE PART A & B [employer] MEDEX SUPPLEMENT MEDICARE PART A & B [employer] MEDEX SUPPLEMENT MEDICARE PART A & B [employer] MEDEX SUPPLEMENT MEDICARE PART A & B [employer] MEDEX SUPPLEMENT MEDICARE PART A & B [employer] MEDEX SUPPLEMENT MEDICARE PART A & B MEDEX SUPPLEMENT MEDICARE PART A & B [employer]UE [employer]OSS MEDEX SUPPLEMENT MEDICARE PART A & B Care Teams Clerical Receptionist Relationship Specialty Start Date End Date Marya Baird MD [address] [address] PCP - General Internal Medicine 10/10/21 Additional Source Comments The information contained in this document represents components of the legal health record. It is not the complete legal health record.[facility]
--- OUTSIDE RECORDS SUMMARY | 2025-05-16 14:03 | XMS_ITS | Patient Health Record ---
[facility] Address [address] [place] [address] Care Team Providers Care Shake Splitter Name Role Phone Marya Baird MD Primary Care Provider Esau Doran Unavailable [phone] Allergies No Known Allergies Reason For Referral [...] Problem Acquired hammer toe of right foot (39434543982135 05) Other hammer toe(s) (acquired), right foot (M20.41) Active confirmed Problem Acquired hammer toe of left foot (84019412127770 03) Other hammer toe(s) (acquired), left foot (M20.42) Active confirmed Problem Lumbosacral spondylosis without myelopathy (63862525) 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
--- OUTSIDE RECORDS SUMMARY | 2025-05-16 14:04 | XMS_ITS | Encounter Summary ---
Author Organization [facility] Address [address] [place] [address] Phone Care Team Providers Care Multimedia Production Assistant Name Role Phone Marya Baird MD Primary Care Provide r Encounter Details Date Type Department Care Team (Late st Contact Info) Description 10/12/2021 Ancillary Orders [facility] [address] [place] [address] System, Provider Not In, [place] [address] Social History Tobacco Use Types Packs/Day Years [...] on filedocumented in this encounter Care Teams Multimedia Production Assistant Relationship Specialty Start Date End Date Marya Baird MD [address] [place] [address] [phone] PCP - General Internal Medicine 10/10/21 documented as of this encounter Additional Source Comments The information contained in this document represents components of the legal health record. It is not the complete legal health record.[facility]
--- OUTSIDE RECORDS SUMMARY | 2025-05-16 14:04 | XMS_ITS | Clinical Summary ---
Author Organization [facility] Address [address] [place] [address] Phone Care Team Providers Care Environmental Health Inspector Name Role Phone Santino Jerry MD Primary Care Provider [phone] Family History Medical History Relation Name Comments [...] 06/02/2024 11:31 AM EST Plan of Treatment Upcoming Encounters Date Type Department Care Team (Late st Contact Info) Description 06/06/2025 10:15 AM EST Appointment [facility] [address] [address] Health Maintenance Due Date Last Done Comments [...] age to complete this topic Insurance MEDICARE [facility] Care Teams Environmental Health Inspector Relationship Specialty Start Date End Date Santino Jerry MD [address] [place] [phone] PCP - General Internal Medicine 05/13/25
== END 2025-05-16 11:40 | disposition home or self-care (01) ==
PROVIDERS: PCP Internal Medicine; Visit Provider Orthopaedic Surgery
DX: M17.0 Bilateral primary osteoarthritis of knee (principal)
CPT/HCPCS: 20610; 99213

== ENCOUNTER 2025-05-16 11:05 | Outpatient (REF) | payer MEDICARE, SELFPAY ==
--- NOTE | ~2025-05-16 | XR_ITS ---
EXAMINATION: XR KNEE, LEFT CLINICAL INFORMATION: M25.562 - Pain in left knee COMPARISON: X-ray 02/15/2025 TECHNIQUE: Three views of the left knee. FINDINGS: Mild narrowing of the 3 compartments. Redemonstrated 1.5 cm ossification adjacent to the medial femoral condyle . No visible acute fracture or dislocation. Small suprapatellar joint fluid. Vascular calcifications. No suspicious bony lesions. No abnormal soft tissue calcification. XR/XR knee LT 3V IMPRESSION: Mild tricompartment arthritis. Electronically signed by: Ja Mari MD 05/16/2025 11:39 AM EDT
== END 2025-05-16 11:06 | disposition home or self-care (01) ==
LOC: HO.HOSX 11:05
PROVIDERS: PCP Internal Medicine; Visit Provider Orthopaedic Surgery
DX: M17.0 Bilateral primary osteoarthritis of knee (principal); Z79.899 Other long term (current) drug therapy
CPT/HCPCS: 20610; 73562; 99212; J2003; J7318

== ENCOUNTER → 2025-05-16 11:18 | Outpatient (BNV) | payer MEDICARE, SELFPAY | PROVIDERS: PCP Internal Medicine; Visit Provider Radiology Diagnostic Ultrasound | DX: M17.12 Unilateral primary osteoarthritis, left knee (principal) | CPT/HCPCS: 73562 ==

== ENCOUNTER 2025-06-23 14:12 | Outpatient (AMB) | payer MEDICARE, SELFPAY ==
--- NOTE | 2025-06-23 14:19 | MHC.OFFVIS ---
Vital Signs 06/23/25 14:20 Height 5 ft 2 in Weight 175 lb BMI 32.0 Intake Visit Reasons: Inj-left knee Durolane Intake Note: Milagros 79 yr old female presents with complaints of left knee pain. She describes her pain as sharp in nature. She has failed the last 3 months of conservative treatment. She wishes to hold off on surgery if at all possible. Allergies No Known Allergies Allergy (Verified 06/23/25 14:20) Medication List - Last Reconciled 06/23/25 by Srinath Urbina MD atorvastatin 5 mg PO BEDTIME denosumab (Prolia) 60 mg subcut [id number] levothyroxine 50 mcg PO DAILY lisinopril 10 mg PO BEDTIME multivitamin 1 tab PO DAILY omeprazole 20 mg PO DAILY pregabalin 75 mg PO BEDTIME PFSH Medical History Tick bite Situational stress Polyarthritis Palpitations Osteoporosis Obesity Low back pain Knee pain Hypothyroidism Hypertensive disorder Hypercholesterolemia Healthcare maintenance Diastolic dysfunction GERD (gastroesophageal reflux disease) Full thickness rotator cuff tear Dyspnea Cervical spondylosis Asthma Anxiety Actinic keratosis Abdominal pain Social History Patient Tobacco Use Status: Never used Tobacco Physical Exam Vital Signs: BMI result Body Mass Index 32.0 Extrem Other: Left knee examination shows a minimal effusion, palpable crepitus with range of motion, pain with range of motion, no instability Office Procedures AMB Joint Injection/Aspiration Joint Injection/Aspiration Primary Site: Left Knee Prep: site was prepped using aseptic technique Injected: 60 mg of, Durolane, with 3 mL of and 1% plain Lidocaine Procedure: The patient tolerated the procedure well Coding 71724 - Large joint Procedure code (CPT) selection complete Results Reviewed Results Reviewed: X-rays of the patient's left knee taken previously show joint space narrowing, subchondral sclerosis, no acute bony abnormalities Assessment & Plan Assessment & Plan (1) Osteoarthritis of left knee: Code(s): M17.12 - Unilateral primary osteoarthritis, left knee Category: Medical Plan Ms. Franklin presents with left knee pain due to osteoarthritis. The risks and benefits of a Durolane viscosupplementation injection were discussed at length with the patient. The patient wished to proceed. She tolerated the injection well. She will continue with her home exercise program. She will contact me prior to her follow-up appointment in 3 months should any questions or concerns arise. Feel free to call me at any time should questions regarding her orthopedic management arise. I spent 20 minutes in reviewing the patient's records and imaging studies, seeing the patient and documenting in the medical record. Orders: Orders AMB Joint Injection/Aspiration Today M17.12 - Unilateral primary osteoarthritis, left knee Coding Level of Care Code Est Pt Level 3 (85199) Complex visit Add On G2211 Diagnoses Osteoarthritis of left knee M17.12 CPT Codes Coding - 74949 Large joint: 67584 - Large joint ([id number])
[2025-06-23 14:20] VITALS: BMI 32.0
== END 2025-06-23 14:30 | disposition home or self-care (01) ==
LOC: HO.HOS 14:13
PROVIDERS: PCP Internal Medicine; Visit Provider Orthopaedic Surgery
DX: M17.12 Unilateral primary osteoarthritis, left knee (principal)
CPT/HCPCS: 20610; 99213

== ENCOUNTER → 2025-06-23 14:12 | Outpatient (BNVA) | payer MEDICARE, SELFPAY | PROVIDERS: PCP Internal Medicine; Visit Provider Orthopaedic Surgery | DX: M17.12 Unilateral primary osteoarthritis, left knee (principal) | CPT/HCPCS: 20610; 99212; J2003; J7318 ==